=== PATIENT | female | born 1955 | race Caucasian/White ===

== ENCOUNTER 2017-06-25 11:11 | Emergency (ER) | payer MEDICAID ==
[2017-06-25 11:38] LABS: BILIRUBIN,URINE NEGATIVE (NEGATIVE)
[2017-06-25 11:45] LABS: UA w/ MICROSCOPIC CHARGE YES
[2017-06-25 11:54] LABS: UR CULTURE IF IND INDICATED
[2017-06-25] MEDS ORDERED: cefTRIAXone 1 GM VIAL IM STA (12:43)
--- NOTE | 2017-06-25 12:47 | ED Physician Documentation ---
PD HPI FEMALE - Stated complaint Stated Complaint: FEMALE - Chief complaint Chief Complaint: Abd Pain - History obtained from History obtained from: Patient, Family - History of Present Illness Timing - onset: How many days ago (3) Timing - duration: Days (3) Timing - details: Gradual onset, Still present Associated symptoms: Back pain, Dysuria, Urinary frequency Contributing factors: No: Similar symptoms before: Diagnosis (UTI) Recently seen: Not recently seen - Additional information Additional information: 62 y/o female began to have urinary symptoms and started drinking extra fluids. She developed severe flank pain last night and this is improved now after taking some ibuprofen this morning. Review of Systems Constitutional: reports: Fatigue. denies: Fever Eyes: denies: Decreased vision Ears: denies: Ear pain Nose: denies: Congestion Throat: denies: Sore throat Cardiac: denies: Chest pain / pressure, Palpitations Respiratory: denies: Dyspnea, Cough GI: reports: Abdominal Pain. denies: Nausea, Vomiting, Constipation, Diarrhea : reports: Dysuria, Frequency Musculoskeletal: reports: Back pain. denies: Neck pain PD PAST MEDICAL HISTORY - Past Medical History Past Medical History: No - Past Surgical History Past Surgical History: Yes - Present Medications Home Medications: Ambulatory Orders Medication Instructions Recorded Confirmed Ciprofloxacin HCl [Cipro] 500 mg PO BID #14 tablet 06/25/17 - Allergies Allergies/Adverse Reactions: Allergies Allergy/AdvReac Type Severity Reaction Status Date / Time cephalexin [From Keflex] Allergy Hives Verified 06/25/17 11:18 erythromycin base Allergy Unknown Verified 06/25/17 11:18 sulfamethoxazole Allergy Unknown Verified 06/25/17 11:18 [From Septra] trimethoprim [From Septra] Allergy Unknown Verified 06/25/17 11:18 - Social History Does the pt smoke?: Yes Smoking Status: Current every day smoker PD ED PE NORMAL - Vitals Vital signs reviewed: Yes (hypertensive ) - General General: Alert and oriented X 3, No acute distress, Well developed/nourished - HEENT HEENT: Atraumatic, PERRL - Neck Neck: Supple, no meningeal sign - Cardiac Cardiac: RRR, No murmur - Respiratory Respiratory: No respiratory distress, Clear bilaterally - Abdomen Abdomen: Soft, Non tender - Back Back: No CVA TTP, No spinal TTP - Derm Derm: Normal color, Warm and dry, No rash - Extremities Extremities: No deformity, No edema - Neuro Neuro: No motor deficit, No sensory deficit, Normal speech Eye Opening: Spontaneous Motor: Obeys Commands Verbal: Oriented GCS Score: 15 - Psych Psych: Normal mood, Normal affect Results - Vitals Vitals: Vital Signs - 24 hr 06/25/17 11:16 Temperature 36.4 C L Heart Rate 79 Respiratory 18 Rate Blood Pressure 152/87 H O2 Saturation 100 Oxygen O2 Source Room air - Labs Labs: Laboratory Tests 06/25/17 11:30 Urine Color YELLOW Urine Clarity CLEAR Urine pH 6.0 Ur Specific [place] 1.010 Urine Protein NEGATIVE Urine Glucose (UA) NEGATIVE Urine Ketones NEGATIVE Urine Occult Blood LARGE H Urine Nitrite NEGATIVE Urine Bilirubin NEGATIVE Urine Urobilinogen 0.2 (NORMAL) Ur Leukocyte Esterase MODERATE H Urine RBC 6-10 H Urine WBC 11-25 H Ur Squamous Epith Cells FEW Squamous Urine Bacteria Many H Urine Mucus Few Strands Ur Microscopic Review INDICATED Urine Culture Comments INDICATED PD MEDICAL DECISION MAKING - ED course Complexity details: reviewed results, re-evaluated patient, considered differential, d/w patient, d/w family ED course: 62-year-old female with several days of urinary symptoms developed flank pain last night has taken some ibuprofen and the flank pain is now resolved. She does have evidence of infection on evaluation of the urine and she is administered Rocephin IM and we will place her on some Cipro. She does have some issues with antibiotic reactions. Departure - Departure Disposition: 01 Home, Self Care Clinical Impression: Pyelonephritis Condition: Stable Instructions: ED Kidney Infec Female Follow-Up: [facility] [Provider Group] Prescriptions: Ciprofloxacin HCl [Cipro] 500 mg PO BID #14 tablet Forms: Activity restrictions
[2017-06-25] MEDS ORDERED: cefTRIAXone 1 GM VIAL ONE (12:53)
[2017-06-25] MEDS ORDERED: LIDOCAINE 1% 2 ML VIAL ONE (12:53)
[2017-06-25 13:01] VITALS: BP 142/82
== END 2017-06-25 13:01 | disposition home or self-care (01) ==
LOC: ED 11:11
DX: N12 Tubulo-interstitial nephritis, not specified as acute or chronic (principal); F17.200 Nicotine dependence, unspecified, uncomplicated
CPT/HCPCS: 81001; 81003; 87077; 87086; 96372; 99283; 99284

== ENCOUNTER 2017-11-04 13:28 | Emergency (ER) | payer MEDICAID ==
--- NOTE | 2017-11-04 14:16 | XRAY Preliminary Report ---
Exam: XR CHEST 2 VIEW X-RAY IMPRESSION: Findings suspicious for right upper lobe pneumonia. Correlate with clinical findings. Carisa rt-term radiographic follow-up is recommended in 3-4 weeks. [facility] SITE ID: [id number]
--- NOTE | 2017-11-04 14:17 | XRAY Report ---
EXAM: CHEST RADIOGRAPHY EXAM DATE: 11/04/2017 02:13 PM. CLINICAL HISTORY: Productive cough. COMPARISON: None. TECHNIQUE: 2 views. FINDINGS: Lungs/Pleura: Patchy peripheral airspace disease is seen in the right upper lobe, suspicious for pneu monia. The lungs are otherwise clear. No pneumothorax or pleural effusion. Mediastinum: Heart and mediastinal contours are unremarkable. Other: None. IMPRESSION: Findings suspicious for right upper lobe pneumonia. Correlate with clinical findings. Carisa rt-term radiographic follow-up is recommended in 3-4 weeks. [facility] Referring Provider Line: [phone] SITE ID: [id number]
--- NOTE | 2017-11-04 16:00 | ED Physician Documentation ---
PD HPI URI - Stated complaint Stated Complaint: ds - Chief complaint Chief Complaint: Resp - History obtained from History obtained from: Patient - History of Present Illness Timing - onset: How many weeks ago (1) Timing duration: Weeks (1) Timing details: Gradual onset, Still present Associated symptoms: Chills, Nasal congestion, Swollen nodes, Productive cough, Chest pain (with coughing). No: Fever, Hemoptysis, Dyspnea, NVD Contributing factors: No: Sick contact, Travel, Immunocompromised, COPD / asthma Similar symptoms before: Has not had sx before Recently seen: Not recently seen Review of Systems Constitutional: reports: Chills, Myalgias. denies: Fever Nose: reports: Rhinorrhea / runny nose, Congestion Throat: denies: Sore throat Cardiac: denies: Palpitations, Pedal edema, Calf pain Respiratory: reports: Dyspnea, Cough. denies: Wheezing GI: denies: Nausea, Vomiting, Diarrhea Neurologic: reports: Generalized weakness. denies: Focal weakness, Numbness PD PAST MEDICAL HISTORY - Past Medical History Cardiovascular: None Respiratory: None - Past Surgical History Past Surgical History: Yes - Present Medications Home Medications: Ambulatory Orders Medication Instructions Recorded Confirmed Albuterol Sulf [Ventolin Hfa 1 - 2 puffs INH Q4HR PRN #1 inhaler 11/04/17 Inhaler] Benzonatate [Tessalon] 100 mg PO TID PRN #25 capsule 11/04/17 Cetirizine [ZyrTEC] 11/04/17 Dexamethasone [Decadron] 4 mg PO DAILY #5 tablet 11/04/17 Doxycycline Monohydrate 100 mg PO BID #14 tablet 11/04/17 Tramadol HCl 50 mg PO Q6H PRN #20 tablet 11/04/17 - Allergies Allergies/Adverse Reactions: Allergies Allergy/AdvReac Type Severity Reaction Status Date / Time cephalexin [From Keflex] Allergy Hives Verified 11/04/17 13:54 erythromycin base Allergy Unknown Verified 11/04/17 13:54 sulfamethoxazole Allergy Unknown Verified 11/04/17 13:54 [From Septra] trimethoprim [From ] Allergy Unknown Verified 11/04/17 13:54 - Social History Does the pt smoke?: Yes Smoking Status: Current every day smoker PD ED PE NORMAL - Vitals Vital signs reviewed: Yes - General General: Alert and oriented X 3, Well developed/nourished - HEENT HEENT: Ears normal, Moist mucous membranes, Pharynx benign - Neck Neck: Supple, no meningeal sign, No adenopathy - Cardiac Cardiac: RRR, No murmur - Respiratory Respiratory: No respiratory distress. No: Clear bilaterally (some mild congestion sound perihilar with cough and deep breathing. ) - Abdomen Abdomen: Soft, Non tender - Back Back: No CVA TTP - Derm Derm: Normal color, Warm and dry, No rash - Extremities Extremities: No tenderness to palpate, No edema, No calf tenderness / cord Results - Vitals Vitals: Oxygen O2 Source Room air - Labs Labs: Laboratory Tests 11/04/17 13:58 Influenza A (Rapid) Negative Influenza B (Rapid) Negative Influenza Types A,B Ag - - Rads (name of study) chest Radiology: Prelim report reviewed, EMP read contemporaneously (small patch of infiltrate right upper lobe c/w pneumonia. ) PD MEDICAL DECISION MAKING - ED course Complexity details: reviewed results (small patch right upper lobe c/w early pneumonia. ), considered differential, d/w patient Departure - Departure Disposition: 01 Home, Self Care Clinical Impression: Pneumonia Qualifiers: Pneumonia type: due to unspecified organism Laterality: right Lung location: upper lobe of lung Qualified Code(s): J18.1 - Lobar pneumonia, unspecified organism Upper respiratory infection Qualifiers: URI type: unspecified URI Qualified Code(s): J06.9 - Acute upper respiratory infection, unspecified Condition: Stable Record reviewed to determine appropriate education?: Yes Instructions: ED Pneumonia Adult Prescriptions: Albuterol Sulf [Ventolin Hfa Inhaler] 1 - 2 puffs INH Q4HR PRN #1 inhaler PRN Reason: Shortness Of Air/Wheezing Benzonatate [Tessalon] 100 mg PO TID PRN #25 capsule PRN Reason: Cough Dexamethasone [Decadron] 4 mg PO DAILY #5 tablet Doxycycline Monohydrate 100 mg PO BID #14 tablet Tramadol HCl 50 mg PO Q6H PRN #20 tablet PRN Reason: Pain Comments: Drink lots of fluids. Use albuterol inhaler 2 puffs 4 times a day for the next 7-10 days and extra times as needed for cough and wheezing. Decadron steroid and anti-inflammatory daily for 5 days. Use Tessalon if needed for cough. This may be a viral infection but there is a small patch on your x-ray that suggests a mild pneumonia. This is more likely be bacterial so we will add doxycycline antibiotic twice daily for a week. Add Tylenol or tramadol if needed for pains. Recheck if not improving over the next several days to week. Discharge Date/Time: 11/04/17 16:28
[2017-11-04] MEDS ORDERED: DEXAMETHASONE 10 MG/ML VIAL PO STA (16:18)
[2017-11-04] MEDS ORDERED: BENZONATATE 100 MG CAPSULE PO STA (16:18)
[2017-11-04 16:30] VITALS: BP 136/79
[2017-11-04] MEDS ORDERED: CHERRY SYRUP 10 ML UDC PO ONE (16:32)
== END 2017-11-04 16:28 | disposition home or self-care (01) ==
LOC: ED 13:28
DX: J06.9 Acute upper respiratory infection, unspecified (principal); F17.200 Nicotine dependence, unspecified, uncomplicated
CPT/HCPCS: 71046; 87275; 87276; 99283; A9270

== ENCOUNTER 2017-11-13 10:06 | Emergency (ER) | payer MEDICAID ==
[2017-11-13] MEDS ORDERED: PSEUDOEPHEDRINE 30 MG TABLET PO STA (11:12)
[2017-11-13] MEDS ORDERED: OXYMETAZOLINE NASAL SPRAY NAS STA (11:12)
--- NOTE | 2017-11-13 11:18 | ED Physician Documentation ---
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 HEENT: None Psych: None Musculoskeletal: Osteoarthritis Derm: None - Past Surgical History Past Surgical History: Yes - Present Medications Home Medications: Ambulatory Orders Medication Instructions Recorded Confirmed Albuterol Sulf [Ventolin Hfa 1 - 2 puffs INH Q4HR PRN #1 inhaler 11/04/17 Inhaler] Benzonatate [Tessalon] 100 mg PO TID PRN #25 capsule 11/04/17 Cetirizine [ZyrTEC] 11/04/17 Nystatin 5 ml PO Q6H 7 Days #140 ml 11/13/17 Oxymetazoline HCl [Afrin] 2 spray NS BID PRN #1 bottle 11/13/17 Pseudoephedrine [Sudafed] 30 mg PO Q6H PRN #20 tablet 11/13/17 - Allergies Allergies/Adverse Reactions: Allergies Allergy/AdvReac Type Severity Reaction Status Date / Time cephalexin [From Keflex] Allergy Hives Verified 11/13/17 10:15 erythromycin base Allergy Unknown Verified 11/13/17 10:15 sulfamethoxazole Allergy Unknown Verified 11/13/17 10:15 [From Septra] trimethoprim [From Septra] Allergy Unknown Verified 11/13/17 10:15 - Social History Does the pt smoke?: Yes Smoking Status: Current every day smoker Does the pt drink ETOH?: No Does the pt have substance abuse?: No - Immunizations Immunizations are current?: Yes - POLST Patient has POLST: No PD ED PE NORMAL - Vitals Vital signs reviewed: Yes - HEENT HEENT: Moist mucous membranes, Other (R TM retracted and dull no erythema or purulence). No: Pharynx benign (some thrush) - Neck Neck: Supple, no meningeal sign - Cardiac Cardiac: RRR - Respiratory Respiratory: No respiratory distress, Clear bilaterally - Abdomen Abdomen: Soft, Non tender - Derm Derm: Normal color - Extremities Extremities: No edema Results - Vitals Vitals: Vital Signs - 24 hr 11/13/17 10:12 Temperature 36.7 C Heart Rate 74 Respiratory 15 Rate Blood Pressure 135/64 H O2 Saturation 98 Oxygen O2 Source Room air - Rads (name of study) CXR Radiology: See rad report (improving RUL pna) Departure - Departure Disposition: 01 Home, Self Care Clinical Impression: Thrush Eustachian tube dysfunction Qualifiers: Laterality: right Qualified Code(s): H69.81 - Other specified disorders of Eustachian tube, right ear Condition: Good Instructions: ED Otitis Media Serous Adult, Thrush Oral Prescriptions: Nystatin 5 ml PO Q6H 7 Days #140 ml Oxymetazoline HCl [Afrin] 2 spray NS BID PRN #1 bottle PRN Reason: nasal sinus ear congestion Pseudoephedrine [Sudafed] 30 mg PO Q6H PRN #20 tablet PRN Reason: congestion Comments: The pneumonia is improved on xray today so you do not need more antibiotics. But I did prescribe more cough medication The ear does not look infected but the tympanic membrane is very retraced which is painful I have prescribed afrin and sudafed to help open the eustchian tube to relieve the pressure on the tympanic membrane You have a yeast infection in your mouth called thrush - this is likely due to being on steroids and antibiotics. I have prescribed nystatin. Please follow up with your PMD for a recheck and if the thrush persists you need to have your immune system checked
--- NOTE | 2017-11-13 11:43 | XRAY Report ---
EXAM: CHEST RADIOGRAPHY EXAM DATE: 11/13/2017 11:26 AM. CLINICAL HISTORY: Prior pneumonia, not getting better. COMPARISON: Chest x-ray 11/04/2017. TECHNIQUE: 2 views. FINDINGS: Lungs/Pleura: Right upper lobe aeration has improved. Mild residual right lower lobe airspace disease . No pneumothorax or pleural effusion. Mediastinum: Heart and mediastinal contours are unremarkable. Other: None. IMPRESSION: Improving right upper lobe airspace disease compatible with pneumonia. [facility] Referring Provider Line: [phone] SITE ID: [id number]
[2017-11-13 12:06] VITALS: BP 118/70
== END 2017-11-13 12:10 | disposition home or self-care (01) ==
LOC: ED 10:06
DX: H69.81 Other specified disorders of Eustachian tube, right ear (principal); B37.0 Candidal stomatitis; M19.90 Unspecified osteoarthritis, unspecified site; F17.200 Nicotine dependence, unspecified, uncomplicated
CPT/HCPCS: 71046; 99283; A9270

== ENCOUNTER 2017-11-19 10:13 | Emergency (ER) | payer MEDICAID ==
[2017-11-19 10:21] VITALS: BP 141/85
--- NOTE | 2017-11-19 11:04 | ED Physician Documentation ---
PD HPI URI - Stated complaint Stated Complaint: COUGH/SINUS PX - Chief complaint Chief Complaint: Heent - History obtained from History obtained from: Patient - History of Present Illness Timing duration: Weeks (2) Timing details: Still present Similar symptoms before: Diagnosis (2 weeks ago was treated with doxycycline for right upper lobe pneumonia.) Recently seen: Emergency Dept - Additional information Additional information: The patient is a 62-year-old female who presents with congestion, headache, and right facial pain and pressure. She believes this is caused by sinus infection , which she has had in the past. She denies fever, sore throat, or shortness of breath. She has had cough, which has been improving since 2 weeks ago when she was diagnosed with right upper lobe pneumonia. She was treated with doxycycline at that time. She was also treated with steroid, and developed oral thrush, for which she was treated one week ago. She has a long-time history of cigarette smoking, and continues to smoke cigarettes. Review of Systems Constitutional: denies: Fever Eyes: denies: Irritation Ears: denies: Ear pain Nose: reports: Congestion, Sinus pressure / pain Throat: denies: Sore throat Cardiac: denies: Chest pain / pressure Respiratory: reports: Cough (improving). denies: Dyspnea GI: denies: Abdominal Pain, Nausea, Vomiting : denies: Dysuria Skin: denies: Rash Musculoskeletal: reports: Extremity swelling. denies: Neck pain, Extremity pain Neurologic: reports: Headache (right frontal). 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 HEENT: None Psych: None Musculoskeletal: Osteoarthritis Derm: None - Past Surgical History Past Surgical History: Yes - Present Medications Home Medications: Ambulatory Orders Medication Instructions Recorded Confirmed Albuterol Sulf [Ventolin Hfa 1 - 2 puffs INH Q4HR PRN #1 inhaler 11/04/17 Inhaler] Benzonatate [Tessalon] 100 mg PO TID PRN #25 capsule 11/04/17 Cetirizine [ZyrTEC] 11/04/17 Nystatin 5 ml PO Q6H 7 Days #140 ml 11/13/17 Oxymetazoline HCl [Afrin] 2 spray NS BID PRN #1 bottle 11/13/17 Pseudoephedrine [Sudafed] 30 mg PO Q6H PRN #20 tablet 11/13/17 Amox/Clav 875/125 [Augmentin] 1 each PO Q12H #20 tablet 11/19/17 Benzonatate [Tessalon Perle] 100 mg PO BID PRN #10 capsule 11/19/17 - Allergies Allergies/Adverse Reactions: Allergies Allergy/AdvReac Type Severity Reaction Status Date / Time cephalexin [From Keflex] Allergy Hives Verified 11/19/17 10:21 erythromycin base Allergy Unknown Verified 11/19/17 10:21 sulfamethoxazole Allergy Unknown Verified 11/19/17 10:21 [From Septra] trimethoprim [From Marra] Allergy Unknown Verified 11/19/17 10:21 - Social History Does the pt smoke?: Yes Smoking Status: Current every day smoker Does the pt drink ETOH?: No Does the pt have substance abuse?: No - Immunizations Immunizations are current?: Yes - POLST Patient has POLST: No PD ED PE NORMAL - Vitals Vital signs reviewed: Yes (Mild hypertension initially.) - General General: Alert and oriented X 3, Well developed/nourished - HEENT HEENT: Atraumatic, EOMI, Ears normal, Moist mucous membranes, Pharynx benign, Other (There is tenderness to percussion over the right maxillary sinus.) - Neck Neck: Supple, no meningeal sign, No adenopathy - Cardiac Cardiac: RRR, No murmur - Respiratory Respiratory: No respiratory distress, Clear bilaterally - Abdomen Abdomen: Soft, Non tender - Back Back: No CVA TTP - Derm Derm: No rash - Extremities Extremities: No edema, No calf tenderness / cord - Neuro Neuro: Alert and oriented X 3, No motor deficit, No sensory deficit Results - Vitals Vitals: Oxygen O2 Source Room air PD MEDICAL DECISION MAKING - ED course Complexity details: reviewed old records, considered differential, d/w patient ED course: The patient's presentation is most consistent with sinusitis. Her presentation does not suggest meningitis, peritonsillar abscess, or recurrent pneumonia. She is being discharged with a prescription for Augmentin and for Tessalon. I discussed with her the expected course of illness, antibiotic treatment and outpatient follow-up, as well as potentially worrisome signs or symptoms that should prompt reevaluation in the emergency department. Departure - Departure Disposition: 01 Home, Self Care Clinical Impression: Sinusitis Qualifiers: Sinusitis location: unspecified location Chronicity: acute Recurrence: recurrent Qualified Code(s): J01.91 - Acute recurrent sinusitis, unspecified Condition: Stable Instructions: ED Sinusitis Abx Tx Prescriptions: Amox/Clav 875/125 [Augmentin] 1 each PO Q12H #20 tablet Benzonatate [Tessalon Perle] 100 mg PO BID PRN #10 capsule PRN Reason: Cough Comments: Try to stop smoking cigarettes. Take Augmentin twice daily as prescribed. You should use probiotic or eat probiotic yogurt while on antibiotic therapy. He can use Tessalon as prescribed if needed for cough. Follow-up with primary physician within 2 weeks if possible. Call to schedule appointment. Return to the emergency department if you develop increasing difficulty breathing, or otherwise worsening symptoms. Discharge Date/Time: 11/19/17 11:13
== END 2017-11-19 11:13 | disposition home or self-care (01) ==
LOC: ED 10:13
DX: J01.91 Acute recurrent sinusitis, unspecified (principal); F17.200 Nicotine dependence, unspecified, uncomplicated
CPT/HCPCS: 99283

== ENCOUNTER 2018-01-17 09:38 | Outpatient (CLI) | payer MEDICAID, OTHER ==
[2018-01-17 13:35] LABS: BASOPHILS # (AUTO) 0.1 10^3/uL (0.0-0.1); BASOPHILS % (AUTO) 1.2 %; EOSINOPHILS # (AUTO) 0.2 10^3/uL (0.0-0.7); EOSINOPHILS % (AUTO) 2.4 %; HGB - HEMOGLOBIN 14.1 g/dL (12.0-16.0); LYMPHOCYTES # (AUTO) 2.3 10^3/uL (1.5-3.5); LYMPHOCYTES % (AUTO) 23.1 %; MEAN CORPUSCULAR HEMOGLOBIN 29.1 pg (27.0-31.0); MEAN CORPUSCULAR HGB CONC 33.1 g/dL (32.0-36.0); MEAN PLATELET VOLUME 8.5 fL (7.9-10.8); NEUTROPHILS # (AUTO) 6.4 10^3/uL (1.5-6.6); NEUTROPHILS % (AUTO) 63.3 %; PLT - PLATELET COUNT 347 10^3/uL (130-450); RED BLOOD COUNT 4.86 10^6/uL (4.20-5.40); RED CELL DISTRIBUTION WIDTH 14.4 % (12.0-15.0); WHITE BLOOD COUNT 10.1 x10^3/uL (4.8-10.8)
[2018-01-17 14:09] LABS: ALBUMIN 3.8 g/dL (3.2-5.5); ALBUMIN/GLOBULIN RATIO 1.2 (1.0-2.2); ALKALINE PHOSPHATASE 81 IU/L (42-121); ALT ALANINE AMINOTRANSFERASE 20 IU/L (10-60); AST ASPARTATE AMINOTRANSFERASE 20 IU/L (10-42); BILIRUBIN,TOTAL 0.3 mg/dL (0.2-1.0); BUN - BLOOD UREA NITROGEN 15 mg/dL (6-20); CARBON DIOXIDE - CO2 25 mmol/L (21-32); CHLORIDE 108 mmol/L (101-111); CHOL/HDL RATIO 4.8 (<4.4); CHOLESTEROL 226 mg/dL; CREATININE 0.7 mg/dL (0.4-1.0); GFR - MDRD 85 (>89); GLUCOSE 98 mg/dL (70-100); HDL CHOLESTEROL 47 mg/dL; LDL CHOLESTEROL,CALCULATED 146 mg/dL; LDL/HDL RATIO 3.1 (<4.4); SODIUM 139 mmol/L (135-145); VLDL CHOLESTEROL 33 mg/dL
== END 2018-01-17 09:39 | disposition home or self-care (01) ==
LOC: LAB.N 09:38
PROVIDERS: ATTEND Nurse Practitioner
DX: R03.0 Elevated blood-pressure reading, without diagnosis of hypertension (principal); R53.83 Other fatigue; F17.200 Nicotine dependence, unspecified, uncomplicated
CPT/HCPCS: 36415; 80053; 80061; 83721; 84443; 85025

== ENCOUNTER 2018-05-02 22:16 | Emergency (ER) | payer OTHER ==
[2018-05-02] MEDS ORDERED: IPRATROPIUM/ALBUTEROL 3 ML NEB INH STA ×2 (22:31→23:42)
--- NOTE | 2018-05-02 22:34 | ED Physician Documentation ---
PD HPI DYSPNEA - Stated complaint Stated Complaint: SOA - Chief complaint Chief Complaint: Resp - History obtained from History obtained from: Patient - History of Present Illness Timing - onset: How many days ago (3) Timing - onset during: Rest Timing - details: Gradual onset Worsened by: Coughing Associated symptoms: Cough. No: Fever Similar symptoms before: Work up / diagnostics Recently seen: Clinic - Additional information Additional information: Patient is a 63 year old female presenting to the emergency department for shortness of breath, cough and chest pain. patient states that she saw her doctor who diagnosed her with bronchitis but did not do an x-ray. patient states that she feels like someone is sitting on her chest. patient denies a history of asthma or copd but does report smoking a pack a day for most of her life. 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 : None HEENT: None Psych: None Musculoskeletal: Osteoarthritis Derm: None - Past Surgical History Past Surgical History: Yes - Present Medications Home Medications: Ambulatory Orders Medication Instructions Recorded Confirmed Albuterol Sulf [Ventolin Hfa 1 - 2 puffs INH Q4HR PRN #1 inhaler 11/04/17 Inhaler] Benzonatate [Tessalon] 100 mg PO TID PRN #25 capsule 11/04/17 Cetirizine [ZyrTEC] 11/04/17 Nystatin 5 ml PO Q6H 7 Days #140 ml 11/13/17 Oxymetazoline HCl [Afrin] 2 spray NS BID PRN #1 bottle 11/13/17 Pseudoephedrine [Sudafed] 30 mg PO Q6H PRN #20 tablet 11/13/17 Amox/Clav 875/125 [Augmentin] 1 each PO Q12H #20 tablet 11/19/17 Benzonatate [Tessalon Perle] 100 mg PO BID PRN #10 capsule 11/19/17 Albuterol Sulfate [Proventil Hfa 1 - 2 puffs INH Q4H PRN #1 inhaler 05/03/18 Inhaler] predniSONE [Prednisone] 40 mg PO DAILY 5 Days tablet 05/03/18 - Allergies Allergies/Adverse Reactions: Allergies Allergy/AdvReac Type Severity Reaction Status Date / Time cephalexin [From Keflex] Allergy Hives Verified 05/02/18 22:26 erythromycin base Allergy Unknown Verified 05/02/18 22:26 sulfamethoxazole Allergy Unknown Verified 05/02/18 22:26 [From Septra] trimethoprim [From Septra] Allergy Unknown Verified 05/02/18 22:26 - Social History Does the pt smoke?: Yes Smoking Status: Current every day smoker Does the pt drink ETOH?: No Does the pt have substance abuse?: No - Immunizations Immunizations are current?: Yes - POLST Patient has POLST: No PD ED PE NORMAL - Vitals Vital signs reviewed: Yes - General General: Alert and oriented X 3 - HEENT HEENT: Atraumatic - Cardiac Cardiac: RRR - Abdomen Abdomen: Soft - Derm Derm: Normal color, Warm and dry - Extremities Extremities: No deformity, No calf tenderness / cord - Neuro Neuro: Alert and oriented X 3, No motor deficit, Normal speech Eye Opening: Spontaneous - Psych Psych: Normal mood PD ED PE EXPANDED - Respiratory Respiratory: Wheezing (mild bilateral wheezes), Right upper lobe, Left upper lobe Results - Vitals Vitals: Vital Signs - 24 hr 05/02/18 22:24 Temperature 37.3 C Heart Rate 79 Respiratory 18 Rate Blood Pressure 152/70 H O2 Saturation 94 Oxygen O2 Source Room air - EKG (time done) 2243 Rate: Rate (enter#) (71) Rhythm: NSR [place]: Normal Intervals: Normal OR QRS: Normal Ischemia: Normal ST segments Compare to prior EKG: Unchanged from prior EKG - Rads (name of study) chest x-ray Radiology: Final report received (normal) PD MEDICAL DECISION MAKING - ED course Complexity details: reviewed old records, reviewed results, re-evaluated patient, considered differential, d/w patient ED course: Patient was seen and examined at bedside. labs were drawn and chest x-ray was ordered. Patient was started on a nebulizer treatment. chest x-ray showed no acute abnormalities. Patient responeded well to the original nebulizer treatment and was treated with a second nebulizer, was educated on a spacer and started on a short course of steroids. patient's symptoms were likely secondary to bronchitis with a component of emphysema. patietn was made guzman of the findings. patient required no further work up and was stable for discharge with outpatient follow up. - Sepsis Event Vital Signs: Vital Signs - 24 hr 05/02/18 22:24 Temperature 37.3 C Heart Rate 79 Respiratory 18 Rate Blood Pressure 152/70 H O2 Saturation 94 Oxygen O2 Source Room air Departure - Departure Disposition: 01 Home, Self Care Clinical Impression: Bronchitis Condition: Good Instructions: ED Bronchitis Asthmatic Follow-Up: primary,care provider [Other] - Within 1 week Prescriptions: Albuterol Sulfate [Proventil Hfa Inhaler] 1 - 2 puffs INH Q4H PRN #1 inhaler PRN Reason: Shortness Of Air/Wheezing predniSONE [Prednisone] 40 mg PO DAILY 5 Days tablet Comments: Your diagnostics today were within normal limits. there were no significant abnormalities. You should take the steroids for the next 4 days and use the inhaler as needed. You can continue with the cough medicine as prescribed by your physician. You may return to the emergency department at any time for new, worsening or uncontrollable symptoms. Discharge Date/Time: 05/03/18 00:12
[2018-05-02 22:56] LABS: BASOPHILS # (AUTO) 0.2 10^3/uL (0.0-0.1); BASOPHILS % (AUTO) 1.3 %; EOSINOPHILS # (AUTO) 0.3 10^3/uL (0.0-0.7); EOSINOPHILS % (AUTO) 2.6 %; HGB - HEMOGLOBIN 15.2 g/dL (12.0-16.0); LYMPHOCYTES # (AUTO) 3.1 10^3/uL (1.5-3.5); LYMPHOCYTES % (AUTO) 22.9 %; MEAN CORPUSCULAR HEMOGLOBIN 30.6 pg (27.0-31.0); MEAN PLATELET VOLUME 7.6 fL (7.9-10.8); MONOCYTES # (AUTO) 1.3 10^3/uL (0.0-1.0); MONOCYTES % (AUTO) 9.7 %; NEUTROPHILS # (AUTO) 8.5 10^3/uL (1.5-6.6); NEUTROPHILS % (AUTO) 63.5 %; PLT - PLATELET COUNT 330 10^3/uL (130-450); RED BLOOD COUNT 4.95 10^6/uL (4.20-5.40); RED CELL DISTRIBUTION WIDTH 14.3 % (12.0-15.0); WHITE BLOOD COUNT 13.4 x10^3/uL (4.8-10.8)
--- NOTE | 2018-05-02 23:04 | XRAY Report ---
Reason: chest pain, sob Procedure Date: 05/02/2018 Accession Number: [id number] / [id number] Procedure: XR - Chest 1 View X-Ray CPT Code: 36588 FULL RESULT: EXAM: CHEST RADIOGRAPHY EXAM DATE: 05/02/2018 10:56 PM. CLINICAL HISTORY: Chest pain, sob. COMPARISON: CHEST 2 VIEW 11/13/2017 11:20 AM. TECHNIQUE: 1 view. FINDINGS: Lungs/Pleura: No focal opacities evident. No pleural effusion. No pneumothorax. Mediastinum: Within exam limitations, the cardiomediastinal contour is normal. Other: None. IMPRESSION: Normal single view chest. RADIA
[2018-05-02 23:09] LABS: ALBUMIN 4.4 g/dL (3.2-5.5); ALBUMIN/GLOBULIN RATIO 1.4 (1.0-2.2); BILIRUBIN,TOTAL 0.8 mg/dL (0.2-1.0); CALCIUM 9.4 mg/dL (8.5-10.3); CREATININE 0.9 mg/dL (0.4-1.0); TOTAL PROTEIN 7.6 g/dL (6.7-8.2)
[2018-05-02] MEDS ORDERED: predniSONE 20 MG TABLET PO STA (23:42)
[2018-05-02 23:50] VITALS: BP 131/76
== END 2018-05-03 00:12 | disposition home or self-care (01) ==
LOC: ED 22:16
DX: J40 Bronchitis, not specified as acute or chronic (principal); F17.200 Nicotine dependence, unspecified, uncomplicated
CPT/HCPCS: 71045; 80053; 83690; 83880; 84484; 85025; 93005; 94640; 94664; 99283; J7512; 36415

== ENCOUNTER 2018-05-04 20:20 | Emergency (ER) | payer OTHER ==
[2018-05-04] MEDS ORDERED: guaiFENesin/CODEINE 5 ML UDC PO STA (20:55)
[2018-05-04] MEDS ORDERED: AMOX/CLAV 875 MG/125 MG TABLET PO STA (20:55)
[2018-05-04] MEDS ORDERED: ALBUTEROL NEB 2.5 MG/3 ML INH STA (20:55)
--- NOTE | 2018-05-04 20:58 | ED Physician Documentation ---
PD HPI CHEST PAIN - Stated complaint Stated Complaint: SOA/COUGHING - Chief complaint Chief Complaint: Resp - History obtained from History obtained from: Patient - History of Present Illness Timing - onset: Other (63-year-old woman who is a long-term her presents with several days worth of minimally productive cough and shortness of breath especially at night. She improved significantly the other night when she was seen here after 2 nebs but got worse again overnight last night despite being better yesterday. Her chest x-ray at the time was fine. 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 : None HEENT: None Psych: None Musculoskeletal: Osteoarthritis Derm: None - Past Surgical History Past Surgical History: Yes - Present Medications Home Medications: Ambulatory Orders Medication Instructions Recorded Confirmed Albuterol Sulf [Ventolin Hfa 1 - 2 puffs INH Q4HR PRN #1 inhaler 11/04/17 Inhaler] Benzonatate [Tessalon] 100 mg PO TID PRN #25 capsule 11/04/17 Cetirizine [ZyrTEC] 11/04/17 Nystatin 5 ml PO Q6H 7 Days #140 ml 11/13/17 Oxymetazoline HCl [Afrin] 2 spray NS BID PRN #1 bottle 11/13/17 Pseudoephedrine [Sudafed] 30 mg PO Q6H PRN #20 tablet 11/13/17 Amox/Clav 875/125 [Augmentin] 1 each PO Q12H #20 tablet 11/19/17 Benzonatate [Tessalon Perle] 100 mg PO BID PRN #10 capsule 11/19/17 Albuterol Sulfate [Proventil Hfa 1 - 2 puffs INH Q4H PRN #1 inhaler 05/03/18 Inhaler] predniSONE [Prednisone] 40 mg PO DAILY 5 Days tablet 05/03/18 Amox/Clav 875/125 [Augmentin 1 tab PO BID 10 Days #20 tablet 05/04/18 875/125] Hydrocodone Bit/Homatrop Me-Br 5 - 10 ml PO Q4HR PRN #120 ml 05/04/18 [Hydrocodone-Homatropine Syrup] - Allergies Allergies/Adverse Reactions: Allergies Allergy/AdvReac Type Severity Reaction Status Date / Time cephalexin [From Keflex] Allergy Hives Verified 05/02/18 22:26 erythromycin base Allergy Unknown Verified 05/02/18 22:26 sulfamethoxazole Allergy Unknown Verified 05/02/18 22:26 [From Septra] trimethoprim [From Septra] Allergy Unknown Verified 05/02/18 22:26 - Social History Does the pt smoke?: Yes Smoking Status: Current every day smoker Does the pt drink ETOH?: No Does the pt have substance abuse?: No - Immunizations Immunizations are current?: Yes - POLST Patient has POLST: No PD ED PE NORMAL - Vitals Vital signs reviewed: Yes - General General: Alert and oriented X 3, No acute distress - Neck Neck: Supple, no meningeal sign, No bony TTP - Cardiac Cardiac: RRR, No murmur - Respiratory Respiratory: No respiratory distress, Other (Moderate air motion, diminished throughout without focal findings) - Abdomen Abdomen: Non tender - Extremities Extremities: No edema, No calf tenderness / cord Results - Vitals Vitals: Vital Signs - 24 hr 05/04/18 20:25 Temperature 36.4 C L Heart Rate 81 Respiratory 16 Rate Blood Pressure 146/80 H O2 Saturation 96 Oxygen O2 Source Room air PD MEDICAL DECISION MAKING - ED course ED course: 63-year-old woman with respiratory infection, no improvement except for fleeting relief with beta agonists and steroids. She probably has underlying COPD and therefore antibiotics will be added. - Sepsis Event Vital Signs: Vital Signs - 24 hr 05/04/18 20:25 Temperature 36.4 C L Heart Rate 81 Respiratory 16 Rate Blood Pressure 146/80 H O2 Saturation 96 Oxygen O2 Source Room air Departure - Departure Disposition: 01 Home, Self Care Clinical Impression: Mild chronic obstructive pulmonary disease Condition: Stable Record reviewed to determine appropriate education?: Yes Instructions: ED COPD Flare, ED Smoking Cessation Prescriptions: Hydrocodone Bit/Homatrop Me-Br [Hydrocodone-Homatropine Syrup] 5 - 10 ml PO Q4HR PRN #120 ml PRN Reason: Cough Amox/Clav 875/125 [Augmentin 875/125] 1 tab PO BID 10 Days #20 tablet Comments: Your blood pressure was elevated today on check into the emergency department. This does not mean that you have hypertension, it is a common phenomenon to come to the emergency department and have elevated blood pressure. I recommend that you see your primary care physician within the week to have it rechecked when you are feeling better.
[2018-05-04 21:22] VITALS: BP 144/67
== END 2018-05-04 21:34 | disposition home or self-care (01) ==
LOC: ED 20:20
DX: J44.9 Chronic obstructive pulmonary disease, unspecified (principal); R03.0 Elevated blood-pressure reading, without diagnosis of hypertension; F17.200 Nicotine dependence, unspecified, uncomplicated
CPT/HCPCS: 94640; 99283; 99284; A9270

== ENCOUNTER 2018-08-26 08:00 | Outpatient (CLI) | payer OTHER ==
[2018-08-26 13:38] LABS: ALBUMIN 4.3 g/dL (3.2-5.5); ALBUMIN/GLOBULIN RATIO 1.3 (1.0-2.2); BILIRUBIN,TOTAL 0.5 mg/dL (0.2-1.0); CALCIUM 9.6 mg/dL (8.5-10.3); CREATININE 0.7 mg/dL (0.4-1.0); TOTAL PROTEIN 7.7 g/dL (6.7-8.2)
[2018-08-28 19:38] LABS: ANA SCREEN POSITIVE (NEGATIVE)
== END 2018-08-26 23:59 | disposition home or self-care (01) ==
LOC: LAB.N 08:00
PROVIDERS: ATTEND Nurse Practitioner
DX: R03.0 Elevated blood-pressure reading, without diagnosis of hypertension (principal); F17.200 Nicotine dependence, unspecified, uncomplicated; R21 Rash and other nonspecific skin eruption
CPT/HCPCS: 36415; 80053; 86038

== ENCOUNTER 2018-10-21 08:00 | Outpatient (CLI) | payer OTHER ==
[2018-10-21 15:55] LABS: ALBUMIN 4.5 g/dL (3.2-5.5); ALBUMIN/GLOBULIN RATIO 1.4 (1.0-2.2); BILIRUBIN,TOTAL 0.7 mg/dL (0.2-1.0); CALCIUM 9.5 mg/dL (8.5-10.3); CREATININE 0.9 mg/dL (0.4-1.0); TOTAL PROTEIN 7.7 g/dL (6.7-8.2)
== END 2018-10-21 23:59 | disposition home or self-care (01) ==
LOC: LAB.N 08:00
PROVIDERS: ATTEND Nurse Practitioner
DX: R03.0 Elevated blood-pressure reading, without diagnosis of hypertension (principal); F17.200 Nicotine dependence, unspecified, uncomplicated; R21 Rash and other nonspecific skin eruption
CPT/HCPCS: 36415; 80053; 86038

== ENCOUNTER 2019-12-10 08:00 | Outpatient (CLI) | payer MEDICARE, OTHER ==
[2019-12-10 13:25] LABS: BASOPHILS # (AUTO) 0.1 10^3/uL (0.0-0.1); BASOPHILS % (AUTO) 1.1 %; EOSINOPHILS # (AUTO) 0.2 10^3/uL (0.0-0.7); HGB - HEMOGLOBIN 15.4 g/dL (12.0-16.0); LYMPHOCYTES # (AUTO) 2.4 10^3/uL (1.5-3.5); LYMPHOCYTES % (AUTO) 23.4 %; MEAN CORPUSCULAR HEMOGLOBIN 29.3 pg (27.0-31.0); MEAN CORPUSCULAR VOLUME 91.6 fL (81.0-99.0); MEAN PLATELET VOLUME 10.6 fL (7.9-10.8); MONOCYTES # (AUTO) 0.9 10^3/uL (0.0-1.0); MONOCYTES % (AUTO) 8.8 %; NEUTROPHILS # (AUTO) 6.4 10^3/uL (1.5-6.6); NEUTROPHILS % (AUTO) 63.7 %; PLT - PLATELET COUNT 365 10^3/uL (130-450); RED BLOOD COUNT 5.26 10^6/uL (4.20-5.40); RED CELL DISTRIBUTION WIDTH 13.6 % (12.0-15.0); WHITE BLOOD COUNT 10.1 x10^3/uL (4.8-10.8)
[2019-12-10 13:49] LABS: ALBUMIN 4.5 g/dL (3.2-5.5); ALBUMIN/GLOBULIN RATIO 1.5 (1.0-2.2); ALKALINE PHOSPHATASE 88 IU/L (42-121); ALT ALANINE AMINOTRANSFERASE 23 IU/L (10-60); AST ASPARTATE AMINOTRANSFERASE 19 IU/L (10-42); BILIRUBIN,TOTAL 0.8 mg/dL (0.2-1.0); BUN - BLOOD UREA NITROGEN 20 mg/dL (6-20); CALCIUM 9.9 mg/dL (8.5-10.3); CARBON DIOXIDE - CO2 25 mmol/L (21-32); CHLORIDE 107 mmol/L (101-111); CHOL/HDL RATIO 4.5 (<4.4); CHOLESTEROL 272 mg/dL; CREATININE 0.9 mg/dL (0.4-1.0); GLUCOSE 108 mg/dL (70-100); HDL CHOLESTEROL 60 mg/dL; LDL CHOLESTEROL,CALCULATED 179 mg/dL; SODIUM 138 mmol/L (135-145); TOTAL PROTEIN 7.6 g/dL (6.7-8.2); VLDL CHOLESTEROL 33 mg/dL
[2019-12-10 13:55] LABS: HB2 TOTAL 15.3 g/dL; HEMOGLOBIN A1C 0.63 g/dL; HEMOGLOBIN A1C % 5.9 % (4.6-6.2)
== END 2019-12-10 23:59 | disposition home or self-care (01) ==
LOC: LAB.WCP 08:00
PROVIDERS: ATTEND Family Medicine
DX: E78.2 Mixed hyperlipidemia (principal); Z13.1 Encounter for screening for diabetes mellitus
CPT/HCPCS: 36415; 80053; 80061; 83036; 83721; 84443; 85025

== ENCOUNTER 2021-02-06 08:00 | Outpatient (CLI) | payer MEDICARE ==
[2021-02-06 17:50] LABS: BASOPHILS # (AUTO) 0.1 10^3/uL (0.0-0.1); BASOPHILS % (AUTO) 1.1 %; EOSINOPHILS # (AUTO) 0.2 10^3/uL (0.0-0.7); EOSINOPHILS % (AUTO) 2.3 %; HCT - HEMATOCRIT 48.5 % (37.0-47.0); LYMPHOCYTES # (AUTO) 2.1 10^3/uL (1.5-3.5); LYMPHOCYTES % (AUTO) 24.4 %; MEAN CORPUSCULAR HEMOGLOBIN 28.4 pg (27.0-31.0); MEAN CORPUSCULAR HGB CONC 30.9 g/dL (32.0-36.0); MEAN CORPUSCULAR VOLUME 91.9 fL (81.0-99.0); MEAN PLATELET VOLUME 10.2 fL (7.9-10.8); MONOCYTES # (AUTO) 0.8 10^3/uL (0.0-1.0); MONOCYTES % (AUTO) 9.1 %; NEUTROPHILS # (AUTO) 5.3 10^3/uL (1.5-6.6); NEUTROPHILS % (AUTO) 62.5 %; PLT - PLATELET COUNT 366 10^3/uL (130-450); RED BLOOD COUNT 5.28 10^6/uL (4.20-5.40); RED CELL DISTRIBUTION WIDTH 13.8 % (12.0-15.0); WHITE BLOOD COUNT 8.4 x10^3/uL (4.8-10.8)
[2021-02-06 18:18] LABS: ALBUMIN 4.7 g/dL (3.2-5.5); ALBUMIN/GLOBULIN RATIO 1.5 (1.0-2.2); ALKALINE PHOSPHATASE 90 IU/L (42-121); ALT ALANINE AMINOTRANSFERASE 21 IU/L (10-60); AST ASPARTATE AMINOTRANSFERASE 19 IU/L (10-42); BILIRUBIN,TOTAL 0.8 mg/dL (0.2-1.0); BUN - BLOOD UREA NITROGEN 14 mg/dL (6-20); CALCIUM 9.6 mg/dL (8.5-10.3); CARBON DIOXIDE - CO2 24 mmol/L (21-32); CHLORIDE 103 mmol/L (101-111); CHOL/HDL RATIO 4.5 (<4.4); CHOLESTEROL 256 mg/dL; CREATININE 0.8 mg/dL (0.4-1.0); GFR - MDRD 72 (>89); GLUCOSE 87 mg/dL (70-100); HDL CHOLESTEROL 57 mg/dL; LDL CHOLESTEROL,CALCULATED 164 mg/dL; LDL/HDL RATIO 2.9 (<4.4); POTASSIUM 4.5 mmol/L (3.5-5.0); SODIUM 136 mmol/L (135-145); TOTAL PROTEIN 7.9 g/dL (6.7-8.2); TRIGLYCERIDES 174 mg/dL; VLDL CHOLESTEROL 35 mg/dL
== END 2021-02-06 08:01 | disposition home or self-care (01) ==
LOC: LAB.WCP 08:00
PROVIDERS: ATTEND Nurse Practitioner
DX: J45.909 Unspecified asthma, uncomplicated (principal); Z13.220 Encounter for screening for lipoid disorders
CPT/HCPCS: 36415; 80053; 80061; 83721; 85025

== ENCOUNTER 2021-07-26 08:00 | Outpatient (CLI) | payer MEDICARE | END 2021-07-26 23:59 | LOC: LAB.N 08:00 | PROVIDERS: ATTEND Family Medicine | DX: U07.1 COVID-19 (principal) ==

== ENCOUNTER 2021-08-05 11:42 | Emergency (ER) | payer MEDICARE ==
--- NOTE | 2021-08-05 12:32 | ED Physician Documentation ---
PD HPI DYSPNEA - Stated complaint Stated Complaint: C+ - History obtained from History obtained from: Patient - History of Present Illness Timing - onset: How many days ago (10) Timing - onset during: Light activity Timing - duration: Days (10) Timing - details: Abrupt onset, Still present Inciting event(s): URI (tested positive for COVID Jul 21 and has had persistent cough and malaise, with worse cough and fevers the past 2 days.) Improved by: Inhaler/neb. No: Steroids (has not noted improvement with steroids , but is feeling shaky/tremors from it. States upset stomach, nausea with eating.) Associated symptoms: Fever, Cough, Wheezing. No: Chest pain / discomfort, Bilateral edema Similar symptoms before: Has not had sx before Recently seen: Clinic Review of Systems Constitutional: reports: Fever, Chills Nose: reports: Congestion. denies: Rhinorrhea / runny nose Throat: denies: Sore throat Cardiac: denies: Chest pain / pressure, Palpitations, Pedal edema Respiratory: reports: Dyspnea, Cough, Wheezing GI: reports: Abdominal Pain (epigastric pain with eating.), Nausea, Bloody / black stool (states dark loose stools the past 2 days.). 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 : None HEENT: None Psych: None Musculoskeletal: Osteoarthritis Derm: None - Past Surgical History Past Surgical History: Yes - Present Medications Home Medications: Ambulatory Orders Medication Instructions Recorded Confirmed Amoxicillin 500 mg PO TID 5 Days #15 cap 08/05/21 Benzonatate [Tessalon] 100 mg PO TID PRN #20 cap 08/05/21 Famotidine [Pepcid] 20 mg PO BID 10 Days #20 tablet 08/05/21 guaiFENesin/CODEINE [Robitussin AC] 5 ml PO Q6H PRN #120 ml 08/05/21 predniSONE [Deltasone] 40 mg PO DAILY 08/05/21 08/05/21 - Allergies Allergies/Adverse Reactions: Allergies Allergy/AdvReac Type Severity Reaction Status Date / Time cephalexin [From Keflex] Allergy Hives Verified 08/05/21 12:32 erythromycin base Allergy Unknown Verified 08/05/21 12:32 sulfamethoxazole Allergy Unknown Verified 08/05/21 12:32 [From ] trimethoprim [From ] Allergy Unknown Verified 08/05/21 12:32 - Social History Does the pt smoke?: Yes Smoking Status: Current every day smoker Does the pt drink ETOH?: No Does the pt have substance abuse?: No - Immunizations Immunizations are current?: Yes - POLST Patient has POLST: No PD ED PE NORMAL - Vitals Vital signs reviewed: Yes - General General: Alert and oriented X 3, No acute distress, Well developed/nourished - HEENT HEENT: Pharynx benign - Neck Neck: Supple, no meningeal sign, No adenopathy - Cardiac Cardiac: RRR, No murmur - Respiratory Respiratory: No: Clear bilaterally (some exp wheezing centrally. No coarse sounds. ) - Abdomen Abdomen: Soft, Non tender - Derm Derm: Normal color, Warm and dry - Extremities Extremities: Normal ROM s pain, No edema, No calf tenderness / cord - Neuro Neuro: Alert and oriented X 3, No motor deficit, Normal speech Results - Vitals Vitals: Vital Signs - 24 hr 08/05/21 08/05/21 12:29 14:21 Temperature 37.8 C 37.5 C Heart Rate 77 71 Respiratory 16 16 Rate Blood Pressure 116/78 126/68 O2 Saturation 95 96 Oxygen O2 Source Room air - Labs Labs: Laboratory Tests 08/05/21 08/05/21 13:31 13:31 WBC 7.6 RBC 5.44 H Hgb 15.6 Hct 48.0 H MCV 88.2 MCH 28.7 MCHC 32.5 RDW 14.0 Plt Count 191 MPV 11.2 H Neut # (Auto) 5.5 Lymph # (Auto) 1.2 L Weakley # (Auto) 0.7 Eos # (Auto) 0.0 Baso # (Auto) 0.0 Absolute Nucleated RBC 0.00 Nucleated RBC % 0.0 Sodium 136 Potassium 4.7 Chloride 99 L Carbon Dioxide 24 Anion Gap 13.0 BUN 23 H Creatinine 1.0 Estimated GFR (MDRD) 55 L Glucose 102 H Calcium 8.8 Total Bilirubin 0.9 AST 67 H ALT 40 Alkaline Phosphatase 89 Total Protein 7.2 Albumin 3.8 Globulin 3.4 Albumin/Globulin Ratio 1.1 Lipase 37 - Rads (name of study) chest xray Radiology: Prelim report reviewed (diffuse ground glass opacities. ), See rad report PD MEDICAL DECISION MAKING - ED course Complexity details: reviewed results, considered differential (has had COVID for 10 days and feeling increased cough and fever the past day. concern for secondary bronchitis/pneumonia. She states dark stool and has been on steroids, so could be gastritis. H/H is good, so can stop steroids and Rx [id number]. ), d/w patient Departure - Departure Disposition: 01 Home, Self Care Clinical Impression: Pneumonia due to COVID-19 virus, Cough Gastritis, acute Qualifiers: Gastritis type: unspecified gastritis Gastritis bleeding: presence of bleeding unspecified Qualified Code(s): K29.00 - Acute gastritis without bleeding Condition: Stable Record reviewed to determine appropriate education?: Yes Instructions: ED Gastritis Prescriptions: Amoxicillin 500 mg PO TID 5 Days #15 cap Famotidine [Pepcid] 20 mg PO BID 10 Days #20 tablet guaiFENesin/CODEINE [Robitussin AC] 5 ml PO Q6H PRN #120 ml PRN Reason: Cough Benzonatate [Tessalon] 100 mg PO TID PRN #20 cap PRN Reason: Cough Comments: Chest x-ray shows some mild diffuse changes consistent with Covid pneumonitis. There is no localized area of pneumonia to suggest a bacterial component. That said, there could be some bronchitis component, given the prolonged symptoms with now worse cough/fever. Amox three times daily for 5 days for this. We can try to help your cough with benzonatate (Tessalon) and cough medicine. Continue with the albuterol inhaler 2 puffs 4 times a day for the next several days or so. I would stop the prednisone since it sounds like it is upsetting your stomach and may be causing some mild bleeding (gastritis) and therefore causing the dark stools. It also does not sound like it is helping much. Presuming some irritation of the stomach (gastritis), I would suggest famotidine acid reducing medicine twice daily for the next week or so. You can also use antacid such as Maalox or Mylanta to help with your stomach. Recheck if not improving well over the next few days. Return if vomiting, increased diarrhea or dark stools, lightheadedness, worse breathing or other concerns. I transmitted your prescription to [facility] pharmacy in [place]. Discharge Date/Time: 08/05/21 14:32
[2021-08-05] MEDS ORDERED: BENZONATATE 100 MG CAPSULE PO STA (13:19)
[2021-08-05] MEDS ORDERED: guaiFENesin/CODEINE 5 ML UDC PO STA (13:20)
[2021-08-05] MEDS ORDERED: AMOXICILLIN 250 MG CAPSULE PO STA (13:20)
[2021-08-05 13:34] LABS: BASOPHILS % (AUTO) 0.1 %; HGB - HEMOGLOBIN 15.6 g/dL (12.0-16.0); LYMPHOCYTES # (AUTO) 1.2 10^3/uL (1.5-3.5); LYMPHOCYTES % (AUTO) 16.2 %; MEAN CORPUSCULAR HEMOGLOBIN 28.7 pg (27.0-31.0); MEAN CORPUSCULAR HGB CONC 32.5 g/dL (32.0-36.0); MEAN CORPUSCULAR VOLUME 88.2 fL (81.0-99.0); MEAN PLATELET VOLUME 11.2 fL (7.9-10.8); MONOCYTES # (AUTO) 0.7 10^3/uL (0.0-1.0); MONOCYTES % (AUTO) 9.8 %; NEUTROPHILS # (AUTO) 5.5 10^3/uL (1.5-6.6); NEUTROPHILS % (AUTO) 72.7 %; PLT - PLATELET COUNT 191 10^3/uL (130-450); RED BLOOD COUNT 5.44 10^6/uL (4.20-5.40); WHITE BLOOD COUNT 7.6 x10^3/uL (4.8-10.8)
[2021-08-05 13:51] LABS: ALBUMIN 3.8 g/dL (3.2-5.5); ALBUMIN/GLOBULIN RATIO 1.1 (1.0-2.2); BILIRUBIN,TOTAL 0.9 mg/dL (0.2-1.0); CALCIUM 8.8 mg/dL (8.5-10.3); TOTAL PROTEIN 7.2 g/dL (6.7-8.2)
[2021-08-05 13:52] LABS: POTASSIUM 4.7 mmol/L (3.5-5.0)
--- NOTE | 2021-08-05 14:20 | XRAY Report ---
PROCEDURE: Chest 1 View X-Ray INDICATIONS: chest pain TECHNIQUE: One view of the chest was acquired. COMPARISON: 05/02/2018 FINDINGS: Surgical changes and devices: None. Lungs and pleura: No pleural effusions or pneumothorax. There is diffuse groundglass opacities throu ghout the lungs with mild prominence of the interstitium. Mediastinum: Mediastinal contours appear normal. Heart size is normal. Bones and chest wall: No suspicious bony lesions. Overlying soft tissues appear unremarkable. IMPRESSION: Diffuse groundglass opacities and interstitial prominence concerning for atypical infection versus pu lmonary edema. This may be seen in the setting of Covid pneumonia. Recommend clinical correlation. Reviewed by: Saúl Langford DO on 08/05/2021 1:19 PM [email or web address] Approved by: Saúl Langford DO on 08/05/2021 1:19 PM [facility] Station ID: [id number]
[2021-08-05 14:21] VITALS: BP 126/68
== END 2021-08-05 14:32 | disposition home or self-care (01) ==
LOC: ED 11:42
DX: U07.1 COVID-19 (principal); J12.82 Pneumonia due to coronavirus disease 2019; K29.00 Acute gastritis without bleeding; F17.200 Nicotine dependence, unspecified, uncomplicated
CPT/HCPCS: 36415; 71045; 80053; 83690; 85025; 99284; A9270

== ENCOUNTER 2022-03-29 14:40 | Outpatient (CLI) | payer MEDICARE ==
--- NOTE | 2022-03-29 20:00 | XRAY Report ---
PROCEDURE: Thoracic Spine 3 View INDICATIONS: ACUTE THORACIC BACK PAIN TECHNIQUE: 2 views of the thoracic spine were acquired. COMPARISON: None. FINDINGS: Bones: No fractures or dislocations. Mild levoscoliosis centered at T10 level is seen. Mild degener ative endplate changes and loss of disc height throughout mid to lower thoracic spine is seen. No kemi picious bony lesions. 12 pairs of ribs are noted, and appear intact where visualized. Soft tissues: No paravertebral stripe thickening. IMPRESSION: Very mild levoscoliosis of thoracic spine centered at T10 level. Mild degenerative disc disease in mi d to lower thoracic spine. No acute compression fracture or significant listhesis. Reviewed by: Javier Marrero MD on 03/29/2022 7:59 PM PDT Approved by: Javier Marrero MD on 03/29/2022 7:59 PM PDT Station ID: [id number]
== END 2022-03-29 14:41 | disposition home or self-care (01) ==
LOC: DI 14:40
PROVIDERS: ATTEND Physician Assistant Medical
DX: M51.34 Other intervertebral disc degeneration, thoracic region (principal); M41.9 Scoliosis, unspecified

== ENCOUNTER 2023-09-14 19:45 | Emergency (ER) | payer MEDICARE ==
--- NOTE | 2023-09-14 20:10 | ED Physician Documentation ---
PD HPI MAJOR TRAUMA - Stated complaint Stated Complaint: FAAL/R SHOULDER INJ/LIP LAC - Chief complaint Chief Complaint: Trauma Hd/Nk - History obtained from History obtained from: Patient - Additional information Additional information: She mechanical trip and fall over a curb going face and right shoulder first. She has scrapes on her lip, the upper 1. There is no headache or loss of consciousness. The main thing that hurts is her right shoulder, she thinks she dislocated it. 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 : None HEENT: None Psych: None Musculoskeletal: Osteoarthritis Derm: None - Past Surgical History Past Surgical History: Yes - Present Medications Home Medications: Ambulatory Orders Medication Instructions Recorded Confirmed Amoxicillin 500 mg PO TID 5 Days #15 cap 08/05/21 Benzonatate [Tessalon] 100 mg PO TID PRN #20 cap 08/05/21 Famotidine [Pepcid] 20 mg PO BID 10 Days #20 tablet 08/05/21 guaiFENesin/CODEINE [Robitussin AC] 5 ml PO Q6H PRN #120 ml 08/05/21 predniSONE [Deltasone] 40 mg PO DAILY 08/05/21 08/05/21 Oxycodone HCl/Acetaminophen 1 - 2 each PO Q6H PRN #20 tablet 09/14/23 [Percocet 5-325 mg Tablet] - Allergies Allergies/Adverse Reactions: Allergies Allergy/AdvReac Type Severity Reaction Status Date / Time cephalexin [From Keflex] Allergy Hives Verified 09/14/23 19:58 erythromycin base Allergy Unknown Verified 09/14/23 19:58 sulfamethoxazole Allergy Unknown Verified 09/14/23 19:58 [From Septra] trimethoprim [From Marra] Allergy Unknown Verified 09/14/23 19:58 - Social History Does the pt smoke?: Yes Smoking Status: Current every day smoker Does the pt drink ETOH?: No Does the pt have substance abuse?: No - Immunizations Immunizations are current?: Yes - POLST Patient has POLST: No PD ED PE NORMAL - Vitals Vital signs reviewed: Yes - General General: Alert and oriented X 3, No acute distress - HEENT HEENT: PERRL, EOMI, Other (Kind of deep abrasions to the upper lip. Dentures in place.) - Extremities Extremities: Other (There is a deformity of the right shoulder consistent with dislocation, she is unable to range it at all. She does have sensation over the deltoid and in all areas of the hand with good radial pulse.) - Neuro Neuro: Alert and oriented X 3, Normal speech Eye Opening: Spontaneous Motor: Obeys Commands Verbal: Oriented GCS Score: 15 - Psych Psych: Normal mood, Normal affect Results - Vitals Vitals: Vital Signs - 24 hr 09/14/23 09/14/23 09/14/23 19:53 20:57 22:00 Temperature 36.4 C L Heart Rate 78 90 80 Respiratory 18 19 16 Rate Blood Pressure 138/77 H 132/75 H O2 Saturation 94 92 93 If not protocol : Oxygen Flow, liters/minute 09/14/23 09/14/23 09/14/23 22:29 22:35 22:40 Temperature Heart Rate 91 81 77 Respiratory 14 17 18 Rate Blood Pressure 132/75 H 163/97 H 165/107 H O2 Saturation 93 94 95 If not protocol 5 5 : Oxygen Flow, liters/minute 09/14/23 09/14/23 22:45 22:51 Temperature Heart Rate 76 76 Respiratory 13 15 Rate Blood Pressure 165/107 H 135/69 H O2 Saturation 99 97 If not protocol 5 5 : Oxygen Flow, liters/minute Oxygen O2 Source Nasal cannula - Rads (name of study) X-rays of right humerus and shoulder demonstrate a humeral head anterior dislocation with a elongated fracture Relevant Findings:: Final report received, EMP independent interpretation of test Procedures - Splint (location) - Minor RUE Splint applied by: Physician (myself) Type of splint: Fiberglass (coapt long arm) Other: Sling provided - Reduction Body part reduced: Right, Shoulder Fracture or dislocation: Fracture dislocation (Performed by Dr. Daly) Reduction aftercare: Xray confirms reduction - Procedural sedation Sedation prep: Informed consent, Time out completed, ASA 2 - mild disease Sedation Medications: propofol (60 mg them 40mg IVP- total 100mg IVP) Mallampati classification: II Patient status during sedation: Responds to tactile Sedation recovery: Recovered uneventfully Time in sedation (Minutes): 15 PD Medical Decision Making - ED course ED course: 68-year-old woman presents after ground-level fall with predominantly right shoulder injury and also a scrape on her lip that I do not think requires specific intervention other than cleaning and conservative care. X-ray of the shoulder and humerus demonstrate a significantly angulated and displaced shaft humerus fracture with dislocation of the glenohumeral joint. She does seem to be neurovascularly intact. Given the combination of findings I did discuss the case by phone with our on-call orthopedic surgeon, Dr. Trever Daly who says ideally will take her to the OR, but she is only been n.p.o. for 2 hours after dinner here so plans to trial in the ED reduction with sedation by me but we may have to pivot to another plan if it fails and given the combination of the humeral fracture and shoulder dislocation success is not guaranteed. The reduction actually went pretty well, I sedated her and assisted by Dr. Daly did the reduction and radiographs demonstrated a reduction. Subsequently she was placed in a coapt splint by me with a sling. Departure - Departure Disposition: 01 Home, Self Care Clinical Impression: Ground-level fall Abrasion of vermilion border of upper lip Qualifiers: Encounter type: initial encounter Qualified Code(s): S00.511A - Abrasion of lip, initial encounter Right humeral fracture Qualifiers: Encounter type: initial encounter Humerus Location: shaft Fracture type: closed Fracture morphology: spiral Fracture alignment: displaced Qualified Code(s): S42.341A - Displaced spiral fracture of shaft of humerus, right arm, initial encounter for closed fracture Dislocation of right shoulder joint Qualifiers: Encounter type: initial encounter Qualified Code(s): S43.004A - Unspecified dislocation of right shoulder joint, initial encounter Condition: Stable Record reviewed to determine appropriate education?: Yes Instructions: ED Dislocation Shoulder Redu, ED Fx Upper Ext Follow-Up: Orthopedic Care [Provider Group] - Within 1 week Prescriptions: Oxycodone HCl/Acetaminophen [Percocet 5-325 mg Tablet] 1 - 2 each PO Q6H PRN #20 tablet PRN Reason: pain Comments: I sent your prescription electronically to the [facility] in [place]. I am prescribing a short course of narcotic pain medication for you. These are potentially dangerous and addictive medications that should be used carefully. These medications may constipate you. Take an xisn-rli-bybaglt stool softener (docusate) twice daily with plenty of water while taking these medications. If you go 24 hours without a bowel movement, take khpw-kef-beuekbd miralax, per package instructions. Do not drink or drive while taking these medications. If you received narcotic or sedating medications while in the emergency department, do not drive for 24 hours. Store this medication in a safe, secure place and out of reach of children. It is a violation of federal law to give or sell this medication to another person or to use in a manner other than prescribed. The ED will not refill narcotic prescriptions, including prescriptions lost or stolen. To dispose of unwanted medications: 1. [facility] provides a drop box for medication in pill form only (no liquids) 8:00 am to 4:30 p.m. Saturday-Saturday in the lobby of the [facility], [address] [place] [address]. Empty pills into ziplock bag before disposal. Call [phone] for information. 2.[employer] is a free service available to all [facility] residents. Go to [email or web address] Note that many narcotic pain relievers also contain Tylenol/acetaminophen. Please ensure that your total dose of acetaminophen from all sources does not exceed 3 g (3000 mg) per day. Forms: PCP List
[2023-09-14] MEDS: HYDROmorphone 1 MG/ML CARPUJECT IVP STA ×2 (20:33→21:11)
[2023-09-14] MEDS: ACETAMINOPHEN 500 MG TABLET PO STA (20:36)
[2023-09-14] MEDS: TETANUS/DIPHTHERIA/PERTUSSIS 0.5 ML SYRINGE IM ONE (20:39)
--- NOTE | 2023-09-14 21:24 | XRAY Report ---
PROCEDURE: Shoulder 2+V RT INDICATIONS: shoulder inj TECHNIQUE: 3 views of the shoulder were acquired. COMPARISON: None. FINDINGS: Bones: There is a diagonal moderately displaced proximal humeral diaphyseal fracture associated with a anterior subcoracoid right shoulder joint dislocation.. No suspicious bony lesions. Visualized r ibs appear intact. Soft tissues: No suspicious soft tissue calcifications. The visualized lungs are within normal limi ts. IMPRESSION: Anterior humeral dislocation, associated with a diagonal displaced and angulated proximal humeral darrian physeal fracture.. Reviewed by: Nathan Oseguera MD on 09/14/2023 9:22 PM PST Approved by: Nathan Oseguera MD on 09/14/2023 9:22 PM [facility] Station ID: [id number]
--- NOTE | 2023-09-14 21:26 | XRAY Report ---
PROCEDURE: Humerus RT INDICATIONS: arm inj TECHNIQUE: 2 views of the humerus were acquired. COMPARISON: None. FINDINGS: Bones: There is a proximal humeral diaphyseal diagonal fracture which is angulated and less well vis ualized is an anterior subcoracoid dislocation of the humeral head. No suspicious bony lesions. Soft tissues: No suspicious soft tissue calcifications or masses. IMPRESSION: Humeral head anterior subcoracoid dislocation, diagonal elongated proximal humeral diaphyseal fractur e with proximal fracture tip approximating the skin surface. Reviewed by: Nathan Oseguera MD on 09/14/2023 9:24 PM PST Approved by: Nathan Oseguera MD on 09/14/2023 9:24 PM PST Station ID: [id number]
[2023-09-14] MEDS: NICOTINE 7 MG PATCH TOP STA (22:06)
[2023-09-14] MEDS: PROPOFOL 200 MG/20 ML VIAL IVP STA ×2 (22:33→23:09)
--- NOTE | 2023-09-14 22:58 | CONSULTATION NOTE ---
Referring Provider Name of Referring Provider:: Ryan Collins MD Consult Date: 09/14/23 History of Present Illness - History of Present Illness HPI Comment/Other: Sherice Dominique is a 68-year-old [id number]-hasa-[id number] female who apparently slipped while taking garbage out from her adventist on the evening of her emergency room visit. She was noted to have pain and swelling about her right shoulder and arm. She denied any loss of consciousness. No distal weakness or numbness noted. X-rays were taken of her humerus and shoulder showed an anterior inferior dislocation of her shoulder along with a long spiral or oblique fracture of her humeral shaft. We were asked to see the patient to assist in her management. She has had fractures to her right arm in the past. No prior shoulder dislocations. 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 : reports: None HEENT: reports: None Psych: reports: None Musculoskeletal: reports: Osteoarthritis Derm: reports: None MRSA Hx?: No - POLST Patient has POLST: No Meds/Allgy - Home Medications Home Medications: Ambulatory Orders Medication Instructions Recorded Confirmed Amoxicillin 500 mg PO TID 5 Days #15 cap 08/05/21 Benzonatate [Tessalon] 100 mg PO TID PRN #20 cap 08/05/21 Famotidine [Pepcid] 20 mg PO BID 10 Days #20 tablet 08/05/21 guaiFENesin/CODEINE [Robitussin AC] 5 ml PO Q6H PRN #120 ml 08/05/21 predniSONE [Deltasone] 40 mg PO DAILY 08/05/21 08/05/21 - Allergies Allergies/Adverse Reactions: Allergies Allergy/AdvReac Type Severity Reaction Status Date / Time cephalexin [From Keflex] Allergy Hives Verified 09/14/23 19:58 erythromycin base Allergy Unknown Verified 09/14/23 19:58 sulfamethoxazole Allergy Unknown Verified 09/14/23 19:58 [From Septra] trimethoprim [From ] Allergy Unknown Verified 09/14/23 19:58 Exam - Vital Signs Vital Signs: Vital Signs x48h Temp Pulse Resp BP Pulse Ox O2 Flow Rate 09/14/23 22:51 76 15 135/69 H 97 5 09/14/23 22:45 76 13 165/107 H 99 5 09/14/23 22:40 77 18 165/107 H 95 5 09/14/23 22:35 81 17 163/97 H 94 5 09/14/23 22:29 91 14 132/75 H 93 09/14/23 22:00 80 16 132/75 H 93 09/14/23 20:57 90 19 92 09/14/23 19:53 36.4 C L 78 18 138/77 H 94 - Physical Exam Comments/Other: Examination: Patient has 1+ swelling around her shoulder and upper arm. No bruising or ecchymoses visible now. On palpation there appears to be a divot where the humeral head should be on the lateral lateral aspect of her shoulder. Neurovascularly she is intact distally. Sensation is intact throughout. She has good strong thumb extension. X-rays: X-rays taken initially shows a long oblique or spiral fracture of the humeral shaft. Films of the shoulder joint shows evidence of a anterior inferior dislocation of the humeral head. Conclusion and Plan - Diagnosis Diagnosis: 1. Closed right dominant anterior inferior shoulder dislocation. 2. Right dominant spiral fracture/oblique fracture of the humeral shaft - Plan Plan: Plan: With conscious sedation we were able to apply longitudinal traction inferiorly and anteriorly to her arm. Then we applied pressure from the anterior inferior aspect of her joint repositioning her humeral head. After several attempts while under conscious sedation it is felt as if the humeral head had relocated into the glenohumeral joint. X-rays: (After our reduction maneuver) showed the humeral head now to be back in the glenoid cavity in both AP and Y lateral projections. Humeral shaft also is in good alignment. Coaptation splints were applied to the arm to protect and help align the humeral shaft fracture with gravity traction. Arm placed in a shoulder immobilizer. Pain medications given. She will follow-up with orthopedic clinic in about a week's time for debbie-ray to check on the reduction of the shoulder joint and if the swelling is diminished enough we will have her fitted for a Mcnamara dia l fracture brace.
[2023-09-14] MEDS: oxyCODONE/ACET 5/325 Prepack 4 PO STA (23:11)
[2023-09-14 23:39] VITALS: BP 142/69; O2SAT 98
--- NOTE | 2023-09-14 23:44 | XRAY Report ---
PROCEDURE: Shoulder 2+V RT INDICATIONS: post-reduction TECHNIQUE: 3 views of the shoulder were acquired. COMPARISON: Shoulder and humerus plain films earlier same day reviewed.. FINDINGS: Bones: There has been a successful reduction of the anterior subcoracoid humeral head dislocation, a nd also reduction in the degree of malalignment at the proximal humeral diaphyseal fracture which is no longer directed towards the cutaneous surface.. No suspicious bony lesions. Visualized ribs appe ar intact. Soft tissues: No suspicious soft tissue calcifications. The visualized lungs are within normal limi ts. IMPRESSION: Successful shoulder joint dislocation reduction, reduction in malalignment of fracture plane involvin g the proximal right humerus. Reviewed by: Nathan Oseguera MD on 09/14/2023 11:42 PM PST Approved by: Nathan Oseguera MD on 09/14/2023 11:42 PM PST Station ID: [id number]
== END 2023-09-14 23:36 | disposition home or self-care (01) ==
LOC: ED 19:45
DX: S00.511A Abrasion of lip, initial encounter (principal); S42.341A Displaced spiral fracture of shaft of humerus, right arm, initial encounter for closed fracture; S43.004A Unspecified dislocation of right shoulder joint, initial encounter; W18.39XA Other fall on same level, initial encounter; Z23 Encounter for immunization
CPT/HCPCS: 23650; 29105; 73030; 73060; 90471; 90715; 96374; 96376; 99152; 99284; 99285; A9270; J1170

== ENCOUNTER 2023-09-19 08:00 | Outpatient (CLI) | payer MEDICARE ==
--- NOTE | 2023-09-19 15:22 | XRAY Report ---
PROCEDURE: Shoulder 3 View RT INDICATIONS: RIGHT SHOULDER DISLOCATION TECHNIQUE: 4 views of the shoulder were acquired. COMPARISON: Shoulder radiographs 09/14/2023. FINDINGS: Bones: Redemonstration of comminuted and moderately displaced fracture of the proximal humeral shaft . Query increased inferior displacement of the humeral head since 09/14/2023. Acromioclavicular interv al is intact. Soft tissues: No suspicious soft tissue calcifications. The visualized lungs are within normal limi ts. IMPRESSION: Comminuted moderately displaced proximal humeral diaphyseal fracture with possible increased inferior displacement of proximal humeral head. Fractured and 5. Reviewed by: Janelle Palomino MD on 09/19/2023 3:20 PM PST Approved by: Janelle Palomino MD on 09/19/2023 3:20 PM PST Station ID: [id number]
--- NOTE | 2023-09-19 15:26 | XRAY Report ---
PROCEDURE: Humerus RT INDICATIONS: RIGHT HUMERUS FX TECHNIQUE: 2 views of the humerus were acquired. COMPARISON: Humerus radiographs 09/14/2023. FINDINGS: Bones: Comminuted proximal humeral shaft spiral fracture with at least one shaft width lateral displa cement of large fracture fragment since 09/14/2023. Soft tissues: No suspicious soft tissue calcifications or masses. IMPRESSION: Stable increased lateral displacement of proximal humeral shaft fracture fragment versus positional a rtifact. No new fracture identified. Reviewed by: Janelle Palomino MD on 09/19/2023 3:25 PM PST Approved by: Janelle Palomino MD on 09/19/2023 3:25 PM PST Station ID: [id number]
== END 2023-09-19 23:59 | disposition home or self-care (01) ==
LOC: DI.WOS 08:00
PROVIDERS: ATTEND Orthopaedic Surgery
DX: S42.301A Unspecified fracture of shaft of humerus, right arm, initial encounter for closed fracture (principal)

== ENCOUNTER 2023-09-26 08:00 | Outpatient (CLI) | payer MEDICARE ==
--- NOTE | 2023-09-26 20:39 | XRAY Report ---
PROCEDURE: Humerus RT INDICATIONS: RIGHT HUMERUS FRACTURE TECHNIQUE: 3 views of the humerus were acquired. COMPARISON: 09/19/2023 FINDINGS: Bones: Again noted is comminuted and displaced oblique fracture involving proximal humeral shaft. Ov erall alignment of right humerus is unchanged from prior study. No new fracture or dislocation. Soft tissues: No suspicious soft tissue calcifications or masses. IMPRESSION: Stable appearance of comminuted and displaced proximal humeral shaft fracture. No new fracture or dis location. Reviewed by: Javier Marrero MD on 09/26/2023 8:37 PM PST Approved by: Javier Marrero MD on 09/26/2023 8:37 PM PST Station ID: [id number]
== END 2023-09-26 23:59 | disposition home or self-care (01) ==
LOC: DI.WOS 08:00
PROVIDERS: ATTEND Orthopaedic Surgery
DX: S42.301A Unspecified fracture of shaft of humerus, right arm, initial encounter for closed fracture (principal)

== ENCOUNTER 2023-10-10 08:00 | Outpatient (CLI) | payer MEDICARE ==
--- NOTE | 2023-10-10 14:39 | XRAY Report ---
PROCEDURE: Humerus RT INDICATIONS: RIGHT HUMERUS FRACTURE TECHNIQUE: 2 views of the humerus were acquired. COMPARISON: 2 views of the right humerus dated 09/26/2023, 09/19/2023. FINDINGS: Bones: Displaced, comminuted humeral fracture is redemonstrated. Fracture fragments appear slightly more approximated than on the prior study dated 09/26/2023; however there is still a moderate amount o f distraction. Soft tissues: No suspicious soft tissue calcifications or masses. IMPRESSION: Distracted, comminuted right humeral fracture. No callus yet visualized. Reviewed by: Viviana Irene MD on 10/10/2023 2:38 PM PDT Approved by: Viviana Irene MD on 10/10/2023 2:38 PM PDT Station ID: [id number]
== END 2023-10-10 23:59 | disposition home or self-care (01) ==
LOC: DI.WOS 08:00
PROVIDERS: ATTEND Orthopaedic Surgery
DX: S42.351D Displaced comminuted fracture of shaft of humerus, right arm, subsequent encounter for fracture with routine healing (principal)

== ENCOUNTER 2023-10-17 08:00 | Outpatient (CLI) | payer MEDICARE ==
--- NOTE | 2023-10-17 18:08 | XRAY Report ---
PROCEDURE: Humerus RT INDICATIONS: RIGHT HUMERUS FRACTURE TECHNIQUE: 2 views of the humerus were acquired. COMPARISON: 2 views of the humerus dated 10/10/2023, 09/26/2023, 09/19/2023 FINDINGS: Bones: Displaced humeral fracture is redemonstrated. Early bridging callus is now visualized. Fractu re fragments are in unchanged anatomic alignment. Soft tissues: No suspicious soft tissue calcifications or masses. IMPRESSION: Early interval healing of a displaced comminuted right proximal humeral fracture. Reviewed by: Viviana Irene MD on 10/17/2023 6:07 PM PDT Approved by: Viviana Irene MD on 10/17/2023 6:07 PM PDT Station ID: [id number]
== END 2023-10-17 23:59 | disposition home or self-care (01) ==
LOC: DI.WOS 08:00
PROVIDERS: ATTEND Orthopaedic Surgery
DX: S42.291D Other displaced fracture of upper end of right humerus, subsequent encounter for fracture with routine healing (principal)

== ENCOUNTER 2024-01-27 08:00 | Outpatient (CLI) | payer MEDICARE | END 2024-01-27 23:59 | disposition home or self-care (01) | LOC: LAB 08:00 | PROVIDERS: ATTEND Physician Assistant Medical | DX: T81.89XA Other complications of procedures, not elsewhere classified, initial encounter (principal); S42.351S Displaced comminuted fracture of shaft of humerus, right arm, sequela | CPT/HCPCS: 87070; 87077; 87181; 87205 ==

== ENCOUNTER 2024-02-12 10:50 | Outpatient (CLI) | payer MEDICARE ==
[2024-02-12 11:20] LABS: CREATININE 0.8 mg/dL (0.6-1.3); GFR - MDRD 71 (>89)
[2024-02-12 11:38] LABS: VANCOMYCIN,TROUGH 10.3 ug/mL
== END 2024-02-12 10:51 | disposition home or self-care (01) ==
LOC: LAB.R 10:50
PROVIDERS: ATTEND Internal Medicine Infectious Disease
DX: M86.2 Subacute osteomyelitis (principal); S42.201K Unspecified fracture of upper end of right humerus, subsequent encounter for fracture with nonunion
CPT/HCPCS: 80202; 82565

== ENCOUNTER 2024-03-09 17:12 | Outpatient (CLI) | payer MEDICARE, MEDICAID | END 2024-03-09 17:13 | disposition short-term general hospital (02) | LOC: EMS 17:12 | DX: M25.552 Pain in left hip (principal); W01.0XXA Fall on same level from slipping, tripping and stumbling without subsequent striking against object, initial encounter; Y92.009 Unspecified place in unspecified non-institutional (private) residence as the place of occurrence of the external cause | CPT/HCPCS: A0425; A0427 ==

== ENCOUNTER 2024-03-09 17:43 | Inpatient (IN) | payer MEDICARE, MEDICAID ==
--- NOTE | 2024-03-09 18:35 | ED Physician Documentation ---
History of Present Illness - Stated complaint Stated Complaint: GLF/HIP PX - Chief complaint Chief Complaint: Trauma Ext - History obtained from History obtained from: Patient, EMS - History of Present Illness Timing: Today Pain level max: 10 Pain level now: 10 - Additonal information Additional information: Patient is a 69-year-old female who presents to the emergency department after ground-level fall. She states she landed on the left hip causing left hip pain. She is currently undergoing IV antibiotics through her PICC line for an infection in her right humerus. She is followed at [facility] in [place] for this. Not on blood thinners. No head, neck, back pain. She is currently receiving Rocephin and vancomycin for the infection of the right humerus. Review of Systems Constitutional: denies: Fever, Chills Cardiac: denies: Chest pain / pressure Respiratory: denies: Dyspnea, Cough GI: denies: Abdominal Pain, Nausea, Vomiting, Constipation, Diarrhea : denies: Dysuria Skin: reports: Reviewed and negative. 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 : None HEENT: None Psych: None Musculoskeletal: Osteoarthritis Derm: None - Past Surgical History Past Surgical History: Yes - Present Medications Home Medications: Ambulatory Orders Medication Instructions Recorded Confirmed Doxycycline [Vibramycin] 100 mg PO BID 03/09/24 03/09/24 Escitalopram [Lexapro] 10 mg PO DAILY 03/09/24 03/09/24 Vancomycin/Water For Inj (Peg) 1,100 mg IV 03/09/24 [Vancomycin 1 Gram/200 ml Bag] cefTRIAXone [Rocephin 2 gram] 2 gm IV Q24H 03/09/24 03/09/24 - Allergies Allergies/Adverse Reactions: Allergies Allergy/AdvReac Type Severity Reaction Status Date / Time cephalexin [From Keflex] Allergy Hives Verified 03/09/24 17:57 erythromycin base Allergy Unknown Verified 03/09/24 17:57 sulfamethoxazole Allergy Unknown Verified 03/09/24 17:57 [From Marra] trimethoprim [From Marra] Allergy Unknown Verified 03/09/24 17:57 - Social History Does the pt smoke?: Yes Smoking Status: Current every day smoker Does the pt drink ETOH?: No Does the pt have substance abuse?: No - Immunizations Immunizations are current?: Yes - POLST Patient has POLST: No PD ED PE NORMAL - Vitals Vital signs reviewed: Yes - General General: Alert and oriented X 3, No acute distress - HEENT HEENT: Atraumatic, PERRL, Moist mucous membranes - Neck Neck: Supple, no meningeal sign, No bony TTP, Other (No step-off or deformity. No tenderness to palpation.) - Cardiac Cardiac: RRR, Strong equal pulses - Respiratory Respiratory: No respiratory distress, Clear bilaterally - Abdomen Abdomen: Soft, Non tender, Non distended - Derm Derm: Warm and dry - Extremities Extremities: Other (Left lower extremity is shortened and externally rotated. Unable to move the leg without severe pain. Neurovascularly intact.) - Neuro Neuro: Alert and oriented X 3, pull over 2-12 intact, No motor deficit, No sensory deficit, Normal speech Eye Opening: Spontaneous Motor: Obeys Commands Verbal: Oriented GCS Score: 15 - Psych Psych: Normal mood, Normal affect Results - Vitals Vitals: Vital Signs - 24 hr 03/09/24 03/09/24 03/09/24 17:49 17:50 18:05 Temperature Heart Rate 70 Respiratory 18 Rate Blood Pressure 139/71 H O2 Saturation 88 L 92 If not protocol 1 : Oxygen Flow, liters/minute 03/09/24 03/09/24 18:11 19:26 Temperature 36.7 C Heart Rate 68 79 Respiratory 22 17 Rate Blood Pressure 139/69 H 142/77 H O2 Saturation 91 L 94 If not protocol 1 2 : Oxygen Flow, liters/minute Oxygen O2 Source Nasal cannula - Labs Labs: Laboratory Tests 03/09/24 03/09/24 20:11 20:11 WBC 13.6 H RBC 4.48 Hgb 12.8 Hct 40.0 MCV 89.3 MCH 28.6 MCHC 32.0 RDW 13.8 Plt Count 297 MPV 9.3 Neut # (Auto) 10.9 H Lymph # (Auto) 1.1 L [place] # (Auto) 1.2 H Eos # (Auto) 0.1 Baso # (Auto) 0.1 Absolute Nucleated RBC 0.00 Nucleated RBC % 0.0 Sodium 136 Potassium 4.2 Chloride 106 Carbon Dioxide 22 Anion Gap 8.0 BUN 17 Creatinine 0.7 Estimated GFR (MDRD) 83 L Glucose 141 H Calcium 9.4 Total Bilirubin 0.4 AST 18 ALT 20 Alkaline Phosphatase 115 Total Protein 6.7 Albumin 4.1 Globulin 2.6 Albumin/Globulin Ratio 1.6 Lipase 16 - Rads (name of study) Left hip x-ray Relevant Findings:: Final report received, See rad report (Impacted left femoral neck fracture) PD Medical Decision Making - ED course Complexity details: reviewed results, re-evaluated patient, considered differential, d/w patient, d/w family, d/w senior analytic consultant ED course: 69-year-old female with an impacted left femoral neck fracture. Given several doses of IV Dilaudid for pain. Discussed the case with Dr. Daly, orthopedics on- call, request that the hospitalist admit the patient and he will plan on taking her to the OR tomorrow. Discussed the case with the nighttime hospitalist who accepts. The nighttime hospitalist does request that I order an EKG, chest x- ray and COVID test. These were ordered and will be followed up by the hospitalist. Patient will be admitted for further care. This document was made in part using voice recognition software. While efforts are made to proofread this document, sound alike and grammatical errors may occur. Departure - Departure Disposition: 66 [facility] DC/Xfer Clinical Impression: Hip fracture, left Qualifiers: Encounter type: initial encounter Fracture type: closed Qualified Code(s): S72.002A - Fracture of unspecified part of neck of left femur, initial encounter for closed fracture Condition: Stable Forms: PCP List
[2024-03-09] MEDS: HYDROmorphone 1 MG/ML CARPUJECT IVP STA ×2 (18:41→20:20)
--- NOTE | 2024-03-09 19:50 | XRAY Report ---
PROCEDURE: Hip w/Pelvis 2-3V LT INDICATIONS: fall, pain TECHNIQUE: 2 views of the hip were acquired. COMPARISON: None. FINDINGS: Bones: Impacted and displaced left femoral neck fracture.. No suspicious bony lesions. Soft tissues: No suspicious soft tissue calcifications or masses. IMPRESSION: Impacted and displaced left femoral neck fracture. Reviewed by: Byron Ojeda MD on 03/09/2024 7:49 PM PDT Approved by: Byron Ojeda MD on 03/09/2024 7:49 PM PDT Station ID: [id number]
[2024-03-09 20:20] LABS: BASOPHILS # (AUTO) 0.1 10^3/uL (0.0-0.1); BASOPHILS % (AUTO) 0.9 %; EOSINOPHILS # (AUTO) 0.1 10^3/uL (0.0-0.7); EOSINOPHILS % (AUTO) 0.6 %; HGB - HEMOGLOBIN 12.8 g/dL (12.0-16.0); LYMPHOCYTES # (AUTO) 1.1 10^3/uL (1.5-3.5); LYMPHOCYTES % (AUTO) 7.9 %; MEAN CORPUSCULAR HEMOGLOBIN 28.6 pg (27.0-31.0); MEAN CORPUSCULAR VOLUME 89.3 fL (81.0-99.0); MEAN PLATELET VOLUME 9.3 fL (7.9-10.8); MONOCYTES # (AUTO) 1.2 10^3/uL (0.0-1.0); MONOCYTES % (AUTO) 9.1 %; NEUTROPHILS # (AUTO) 10.9 10^3/uL (1.5-6.6); NEUTROPHILS % (AUTO) 80.5 %; PLT - PLATELET COUNT 297 10^3/uL (130-450); RED BLOOD COUNT 4.48 10^6/uL (4.20-5.40); RED CELL DISTRIBUTION WIDTH 13.8 % (12.0-15.0); WHITE BLOOD COUNT 13.6 x10^3/uL (4.8-10.8)
[2024-03-09] MEDS: SODIUM CHLORIDE 0.9% 1,000 ML IV STA (20:20)
[2024-03-09 20:35] LABS: ALBUMIN 4.1 g/dL (3.2-5.5); ALBUMIN/GLOBULIN RATIO 1.6 (1.0-2.2); BILIRUBIN,TOTAL 0.4 mg/dL (0.2-1.0); CALCIUM 9.4 mg/dL (8.5-10.3); CREATININE 0.7 mg/dL (0.6-1.3); POTASSIUM 4.2 mmol/L (3.5-4.5); TOTAL PROTEIN 6.7 g/dL (6.4-8.9)
[2024-03-09] MEDS ORDERED: ONDANSETRON 4 MG/2 ML VIAL IVP PRN (20:44)
[2024-03-09] MEDS ORDERED: HYDROcod/ACETAM 5/325 MG TABLET PO PRN (20:44)
[2024-03-09] MEDS ORDERED: ACETAMINOPHEN 325 MG TABLET PO PRN (20:44)
[2024-03-09] MEDS ORDERED: cefTRIAXone 2 GM VIAL IV SCH (21:00)
--- NOTE | 2024-03-09 21:10 | HISTORY & PHYSICAL EXAMINATION ---
Chief Complaint - Chief Complaint Chief Complaint: Ground level fall with left hip pain History of Present Illness - Admitted From Admitted From:: Home - History Obtained From Records Reviewed: Yes History obtained from: Patient, er team and EMR Exam Limitations: none - History of Present Illness HPI Comment/Other: Patient is a 69-year-old female who presents to the emergency department after ground-level fall. She states she landed on the left hip causing left hip pain. She is currently undergoing IV antibiotics through her PICC line for an infection in her right humerus. She is followed at [facility] in [place] for this. Not on blood thinners. No head, neck, back pain. Patient was informed this is a telemedicine visit, we are both based in different location, consent obtained and patient agrees for the visit. 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 [employer], was helping with trash at local [employer] had a fall on Sep 14 fell on outstreched hand, had humeral fracture surgery x 2 had plate placed, infected has polymicrobial infection, currently on Rocephin, Vancomycin and doxycycline, also takes Lexapro, is independent with ADL's, today was taking trash down at her home, while going down 2 stairs missed a step and fell down could not stand up, severe pain, no dizziness palpitations or chest pain prior to event did not loose consiousness, found to have left hip femoral fracture, will be admitted for pain management and hip surgery ortho consulted by ER. 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 : reports: None HEENT: reports: None Psych: reports: None Musculoskeletal: reports: Osteoarthritis Derm: reports: None MRSA Hx?: No - POLST Patient has POLST: No Meds/Allgy - Home Medications Home Medications: Ambulatory Orders Medication Instructions Recorded Confirmed Doxycycline [Vibramycin] 100 mg PO BID 03/09/24 03/09/24 Escitalopram [Lexapro] 10 mg PO DAILY 03/09/24 03/09/24 Vancomycin/Water For Inj (Peg) 1,100 mg IV 03/09/24 [Vancomycin 1 Gram/200 ml Bag] cefTRIAXone [Rocephin 2 gram] 2 gm IV Q24H 03/09/24 03/09/24 - Allergies Allergies/Adverse Reactions: Allergies Allergy/AdvReac Type Severity Reaction Status Date / Time cephalexin [From Keflex] Allergy Hives Verified 03/09/24 17:57 erythromycin base Allergy Unknown Verified 03/09/24 17:57 sulfamethoxazole Allergy Unknown Verified 03/09/24 17:57 [From Septra] trimethoprim [From Septra] Allergy Unknown Verified 03/09/24 17:57 Review of Systems - Constitutional Constitutional: reports: Other (14 system review done and as per hPI) Prior Level of Functionality: Independent with ADL Exam - Vital Signs Vital Signs: Vital Signs x48h Temp Pulse Resp BP Pulse Ox O2 Flow Rate 03/09/24 19:26 36.7 C 79 17 142/77 H 94 2 03/09/24 18:11 68 22 139/69 H 91 L 1 03/09/24 18:05 92 1 03/09/24 17:50 88 L 03/09/24 17:49 70 18 139/71 H - Physical Exam General Appearance: positive: No acute distress Eyes Bilateral: positive: Normal inspection, PERRL, Other (wears glasses) ENT: positive: Pharynx nml, No signs of dehydration Neck: positive: Nml inspection, Thyroid nml, No JVD Respiratory: positive: Chest non-tender Cardiovascular: positive: Regular rate & rhythm Peripheral Pulses: positive: 2+ Abdomen: positive: Non-tender, No organomegaly, Nml bowel sounds, No distention Back: positive: Nml inspection Skin: positive: Color nml, No rash, Warm, Dry Extremities: positive: Other (Left leg externall rotated) Neurologic/Psychiatric: positive: Oriented x3, Mood/affect nml Sepsis Event Note (H) - Evaluation Current Stage of Sepsis: Ruled out Conclusion/Plan - Problem List (1) Hip fracture, left Conclusion/Plan: 69 yr elderly woman being admitted after a mechanical fall 1. Acute left femoral neck fracture 2. Mechanical fall 3. History of humeral plate with infection on iv abx 4. PICC line in place 5. Mood disorder 6. Active tobacco dependence Plan Admit to med surg ivf NPO except meds [place] consulted PICC line to be flushed Continue Vancomycin, Doxycycline and Rocephin Check labs blood cultures x 2 check labs in am Patient is medically optimized and moderate risk for moderate risk procedure Blood sugar control Tobacco cessation counseling done APC discussed and patient is full code All of the above discussed with patient and her son Total time spent 66 mins Qualifiers: Encounter type: initial encounter Fracture type: closed Qualified Code(s): S72.002A - Fracture of unspecified part of neck of left femur, initial encounter for closed fracture - Lab Results Fish Bones: 03/09/24 20:11 03/09/24 20:11 - Diagnostic Imaging Results Diagnostic Imaging Results: positive: Final report reviewed - EKG Results EKG Interpreted Independently: No
[2024-03-09] MEDS: DOXYCYCLINE 100 MG TABLET PO SCH (21:18)
[2024-03-09] MEDS ORDERED: oxyCODONE 5 MG TABLET PO PRN (21:19)
[2024-03-09] MEDS: SODIUM CHLORIDE 0.9% 1,000 ML IV SCH (21:54)
--- NOTE | 2024-03-09 21:55 | XRAY Report ---
PROCEDURE: Chest 1V INDICATIONS: hip fx TECHNIQUE: One view of the chest was acquired. COMPARISON: 08/05/2021 FINDINGS: Surgical changes and devices: Right humerus ORIF. Left upper extremity approach. Tip projects over t he low SVC. Lungs and pleura: No pleural effusions or pneumothorax. Lungs are clear. Mediastinum: Mediastinal contours appear normal. Heart size is normal. Bones and chest wall: No suspicious bony lesions. Overlying soft tissues appear unremarkable. IMPRESSION: No acute cardiopulmonary process. Reviewed by: Jack Gandhi MD on 03/09/2024 9:53 PM PDT Approved by: Jack Gandhi MD on 03/09/2024 9:53 PM PDT Station ID: [id number]
[2024-03-09] MEDS ORDERED: cefTRIAXone 2 GM in SODIUM CHLORIDE 0.9% MINIBAG 100 ML IV SCH (22:00)
[2024-03-09] MEDS: NICOTINE 14 MG PATCH TOP STA (22:14)
[2024-03-09] MEDS: SODIUM CHLORIDE FLUSH 0.9% 10 ML SYRINGE IVP PRN (22:15)
[2024-03-09] MEDS: HYDROmorphone 0.5 MG/0.5 ML SYRINGE IVP PRN (22:15)
[2024-03-10] MEDS: SODIUM CHLORIDE FLUSH 0.9% 10 ML SYRINGE IVP SCH ×2 (00:15→17:00)
[2024-03-10] MEDS: KETOROLAC 15 MG/ML VIAL IVP SCH (01:39)
[2024-03-10] MEDS: ACETAMINOPHEN 1,000 MG/100 ML 1,000 MG/100 ML BAG IV SCH (01:43)
[2024-03-10] MEDS: CYCLOBENZAPRINE 10 MG TABLET PO PRN (07:47)
--- NOTE | 2024-03-10 08:33 | CONSULTATION NOTE ---
Referring Provider Name of Referring Provider:: Juan Culver Consult Date: 03/10/24 History of Present Illness - History of Present Illness HPI Comment/Other: Sherice Dominique is a 69-year-old woman who had a ground-level fall on the day of her admission landing on her left side. Noted immediate pain in her left hip region. Was unable to stand or weight-bear. Was taken to the emergency room where x-rays showed a left intertrochanteric hip fracture. She was admitted for surgical stabilization and with probable surgical fixation for hip fracture. Her recent medical history is significant for an open duction internal fixation for complex left dominant proximal humerus fracture performed at [place] in late November 2023. Follow-up eventually led to the diagnosis of a postoperative osteomyelitis in the operative site. She had a surgical debridement and washout of her proximal humerus and was subsequently started on a 6-week course of IV vancomycin. The second procedure was done in early to mid January. Her orthopedic surgeon up in [place] was with Dr. Cruz. 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 : reports: None HEENT: reports: None Psych: reports: None Musculoskeletal: reports: Osteoarthritis Derm: reports: None MRSA Hx?: No - POLST Patient has POLST: No Meds/Allgy - Home Medications Home Medications: Ambulatory Orders Medication Instructions Recorded Confirmed Doxycycline [Vibramycin] 100 mg PO BID 03/09/24 03/09/24 Escitalopram [Lexapro] 10 mg PO DAILY 03/09/24 03/09/24 Vancomycin/Water For Inj (Peg) 1,100 mg IV 03/09/24 [Vancomycin 1 Gram/200 ml Bag] cefTRIAXone [Rocephin 2 gram] 2 gm IV Q24H 03/09/24 03/09/24 - Allergies Allergies/Adverse Reactions: Allergies Allergy/AdvReac Type Severity Reaction Status Date / Time cephalexin [From Keflex] Allergy Hives Verified 03/09/24 17:57 erythromycin base Allergy Unknown Verified 03/09/24 17:57 sulfamethoxazole Allergy Unknown Verified 03/09/24 17:57 [From Septra] trimethoprim [From Marra] Allergy Unknown Verified 03/09/24 17:57 Exam - Vital Signs Vital Signs: Vital Signs x48h Temp Pulse Resp BP Pulse Ox O2 Flow Rate 03/10/24 07:36 37.0 C 87 20 147/75 H 93 2 - Physical Exam Comments/Other: Examination: Patient's left hip was examined today. She has tenderness on palpation about the hip particular on the lateral aspect. She holds her left leg externally rotated and shortened. She is able to move her toes on command. Sensation. To be intact throughout. Good capillary filling noted of her digits. X-rays: Films were taken on admission shows evidence of a left intertrochanteric hip fracture Conclusion and Plan - Lab Results Laboratory Results 03/09/24 21:00: SARS-CoV-2 (PCR) NOT DETECTED 03/09/24 20:11: Sodium 136, Potassium 4.2, Chloride 106, Carbon Dioxide 22, Anion Gap 8.0, BUN 17, Creatinine 0.7, Estimated GFR (MDRD) 83 L, Glucose 141 H, Calcium 9.4, Total Bilirubin 0.4, AST 18, ALT 20, Alkaline Phosphatase 115, Total Protein 6.7, Albumin 4.1, Globulin 2.6, Albumin/Globulin Ratio 1.6, Lipase 16 03/09/24 20:11: WBC 13.6 H, RBC 4.48, Hgb 12.8, Hct 40.0, MCV 89.3, MCH 28.6, MCHC 32.0, RDW 13.8, Plt Count 297, MPV 9.3, Neut # (Auto) 10.9 H, Lymph # (Auto) 1.1 L, [place] # (Auto) 1.2 H, Eos # (Auto) 0.1, Baso # (Auto) 0.1, Absolute Nucleated RBC 0.00, Nucleated RBC % 0.0 - Diagnosis Diagnosis: left hip fracture - Plan Plan: Plan: Patient will be taken to the operating room this afternoon for surgical stabilization of her left hip fracture. Plan on doing a short InterTAN nailing of this fracture. Discussed treatment options with the patient. Also discussed risks and complications of surgery. These include the possibility of blood clot pulmonary embolus infection blood loss malunion nonunion hardware failure nerve damage etc. All her questions were answered today as well. She wishes us to proceed with surgery as planned. Leg was marked. Consent signed.
[2024-03-10] MEDS: ESCITALOPRAM 10 MG TABLET PO SCH (08:46)
[2024-03-10] MEDS: cefTRIAXone 2 GM in SODIUM CHLORIDE 0.9% MINIBAG 100 ML IV SCH (08:50)
--- NOTE | 2024-03-10 09:30 | PROVIDER PROGRESS NOTE ---
Assessment/Plan - Problem List (1) Hip fracture, left Qualifiers: Encounter type: initial encounter Fracture type: closed Qualified Code(s): S72.002A - Fracture of unspecified part of neck of left femur, initial encounter for closed fracture Assessment/Plan: Patient underwent closed reduction and short InterTAN nailing of left hip fracture today. Continue to monitor. Pain control with [place] every 4 hours as needed for pain PT/OT evaluation in the morning. (2) Osteomyelitis of right humerus Assessment/Plan: Continue treatment with Ceftriaxone 2 g daily vancomycin 1.1 g twice daily intravenously (3) Tobacco dependence Assessment/Plan: Stable continue to monitor - Current Meds Current Meds: Current Medications Generic Name Dose Route Start Last Admin Trade Name Freq PRN Reason Stop Dose Admin Cyclobenzaprine HCl 5 mg 03/10/24 01:24 03/10/24 07:47 Cyclobenzaprine 10 Mg Tablet PO 5 mg TID PRN Administration Spasms Doxycycline Hyclate 100 mg 03/09/24 21:00 03/10/24 08:46 Doxycycline 100 Mg Tablet PO 100 mg BID CHECO Administration Escitalopram Oxalate 10 mg 03/10/24 09:00 03/10/24 08:46 Escitalopram 10 Mg Tablet PO 10 mg DAILY CHECO Administration Hydromorphone HCl 0.5 mg 03/09/24 20:44 03/10/24 07:47 Hydromorphone 0.5 Mg/0.5 Ml Syringe IVP 0.5 mg Q2H PRN Administration Pain 8 to 10 Sodium Chloride 1,000 mls @ 100 mls/hr 03/09/24 21:00 03/10/24 05:27 Normal Saline 0.9% IV 100 mls/hr .Q10H CHECO Administration Ceftriaxone Sodium 2 gm/ 100 mls @ 200 mls/hr 03/10/24 09:00 03/10/24 08:50 Sodium Chloride IV 200 mls/hr Q24H CHECO Administration Acetaminophen 1,000 mg in 100 mls @ 400 mls/hr 03/10/24 02:00 03/10/24 03:29 Acetaminophen IV 03/10/24 20:00 Not Given Q6HR CHECO Ketorolac Tromethamine 15 mg 03/10/24 02:00 03/10/24 03:29 Ketorolac 15 Mg/Ml Vial IVP 03/10/24 22:00 Not Given Q8HR CHECO Sodium Chloride 10 ml 03/09/24 20:44 03/09/24 22:15 Sodium Chloride Flush 0.9% 10 Ml Syringe IVP 10 ml PRN PRN Administration NEEDED PER PROVIDER ORDERS Sodium Chloride 10 ml 03/10/24 01:00 03/10/24 00:15 Sodium Chloride Flush 0.9% 10 Ml Syringe IVP 10 ml 0100,0900,1700 CHECO Administration - Lab Result Fish Bone Diagrams: 03/09/24 20:11 03/09/24 20:11 - Additional Planning My Orders: My Active Orders 03/10/24 10:00 Vancomycin Inj [Vancomycin] 1 gm Sodium Chloride 0.9% [Normal Saline 0.9%] 500 ml IV Q12H Subjective - Subjective Patient Reports: Other (Alert. Following commands. Denies chest pain, shortness of breath and abdominal pain. Continues to complain of left hip pain secondary to acute fracture.) Objective Vital Signs: Vital Signs - 24 hr 03/09/24 03/09/24 03/09/24 17:49 17:50 18:05 Temperature Heart Rate 70 Heart Rate [ Radial] Respiratory 18 Rate Blood Pressure 139/71 H Blood Pressure [Right Radial artery] O2 Saturation 88 L 92 If not protocol 1 : Oxygen Flow, liters/minute 03/09/24 03/09/24 03/09/24 18:11 19:26 21:30 Temperature 36.7 C 36.5 C Heart Rate 68 79 Heart Rate [ 86 Radial] Respiratory 22 17 21 Rate Blood Pressure 139/69 H 142/77 H Blood Pressure 137/78 H [Right Radial artery] O2 Saturation 91 L 94 92 If not protocol 1 2 2 : Oxygen Flow, liters/minute 03/09/24 03/10/24 03/10/24 22:00 00:13 07:36 Temperature 36.6 C 37.0 C Heart Rate Heart Rate [ 98 87 Radial] Respiratory 18 20 Rate Blood Pressure Blood Pressure 166/93 H 147/75 H [Right Radial artery] O2 Saturation 92 93 If not protocol 2 2 2 : Oxygen Flow, liters/minute 03/10/24 07:40 Temperature Heart Rate Heart Rate [ Radial] Respiratory Rate Blood Pressure Blood Pressure [Right Radial artery] O2 Saturation If not protocol 2 : Oxygen Flow, liters/minute Oxygen O2 Source Nasal cannula I&O (Last 24 Hrs): Intake and Output Totals x24h 03/08/24 03/09/24 03/10/24 23:59 23:59 23:59 Intake Total 91.667 1760 Balance 91.667 1760 General: Alert, Oriented x3, No acute distress Neck: Supple, No JVD Neuro: Non Focal Cardiovascular: Other (Positive S1-S2 no extra heart sounds.) Respiratory: Other (Good air exchange in all lung clark no wheezing no crackles.) Abdomen: Other (Soft nontender nondistended positive bowel sounds.) Extremities: No cyanosis Skin: No rashes - Results Results: Laboratory Results WBC 13.6 x10^3/uL (4.8-10.8) H 03/09/24 20:11 RBC 4.48 10^6/uL (4.20-5.40) 03/09/24 20:11 Hgb 12.8 g/dL (12.0-16.0) 03/09/24 20:11 Hct 40.0 % (37.0-47.0) 03/09/24 20:11 MCV 89.3 fL (81.0-99.0) 03/09/24 20:11 MCH 28.6 pg (27.0-31.0) 03/09/24 20:11 MCHC 32.0 g/dL (32.0-36.0) 03/09/24 20:11 RDW 13.8 % (12.0-15.0) 03/09/24 20:11 Plt Count 297 10^3/uL (130-450) 03/09/24 20:11 MPV 9.3 fL (7.9-10.8) 03/09/24 20:11 Neut # (Auto) 10.9 10^3/uL (1.5-6.6) H 03/09/24 20:11 Lymph # (Auto) 1.1 10^3/uL (1.5-3.5) L 03/09/24 20:11 [place] # (Auto) 1.2 10^3/uL (0.0-1.0) H 03/09/24 20:11 Eos # (Auto) 0.1 10^3/uL (0.0-0.7) 03/09/24 20:11 Baso # (Auto) 0.1 10^3/uL (0.0-0.1) 03/09/24 20:11 Absolute Nucleated RBC 0.00 x10^3/uL 03/09/24 20:11 Nucleated RBC % 0.0 /100WBC 03/09/24 20:11 Sodium 136 mmol/L (135-145) 03/09/24 20:11 Potassium 4.2 mmol/L (3.5-4.5) 03/09/24 20:11 Chloride 106 mmol/L (101-111) 03/09/24 20:11 Carbon Dioxide 22 mmol/L (21-32) 03/09/24 20:11 Anion Gap 8.0 (6-13) 03/09/24 20:11 BUN 17 mg/dL (6-20) 03/09/24 20:11 Creatinine 0.7 mg/dL (0.6-1.3) 03/09/24 20:11 Estimated GFR (MDRD) 83 (>89) L 03/09/24 20:11 Glucose 141 mg/dL (74-104) H 03/09/24 20:11 Calcium 9.4 mg/dL (8.5-10.3) 03/09/24 20:11 Total Bilirubin 0.4 mg/dL (0.2-1.0) 03/09/24 20:11 AST 18 IU/L (10-42) 03/09/24 20:11 ALT 20 IU/L (10-60) 03/09/24 20:11 Alkaline Phosphatase 115 IU/L (42-121) 03/09/24 20:11 C-React Prot High Sens 25.48 mg/L 03/10/24 09:00 Total Protein 6.7 g/dL (6.4-8.9) 03/09/24 20:11 Albumin 4.1 g/dL (3.2-5.5) 03/09/24 20:11 Globulin 2.6 g/dL (2.1-4.2) 03/09/24 20:11 Albumin/Globulin Ratio 1.6 (1.0-2.2) 03/09/24 20:11 Lipase 16 U/L (11-82) 03/09/24 20:11 SARS-CoV-2 (PCR) NOT DETECTED 03/09/24 21:00 Sepsis Event Note (H) - Evaluation Current Stage of Sepsis: Ruled out
--- NOTE | 2024-03-10 10:50 | ANESTHESIA ---
Pre-Anesthesia VS, & Labs - Diagnosis Diagnosis left hip fracture - Procedure L hip nailing Vital Signs: Temp Pulse Resp BP Pulse Ox O2 Flow Rate 37.0 C 87 20 147/75 H 93 2 03/10/24 07:36 03/10/24 07:36 03/10/24 07:36 03/10/24 07:36 03/10/24 07:36 03/10/24 07:40 Height: 5 ft 5 in Weight (kg): 73 kg Body Mass Index: 26.7 BMI Classification: Overweight - NPO >8 hours - Is Patient ?: No - Lab Results Current Lab Results: Laboratory Tests 03/10/24 09:00: C-React Prot High Sens 25.48 03/09/24 20:11: Sodium 136, Potassium 4.2, Chloride 106, Carbon Dioxide 22, Anion Gap 8.0, BUN 17, Creatinine 0.7, Estimated GFR (MDRD) 83 L, Glucose 141 H, Calcium 9.4, Total Bilirubin 0.4, AST 18, ALT 20, Alkaline Phosphatase 115, Total Protein 6.7, Albumin 4.1, Globulin 2.6, Albumin/Globulin Ratio 1.6, Lipase 16 03/09/24 20:11: WBC 13.6 H, RBC 4.48, Hgb 12.8, Hct 40.0, MCV 89.3, MCH 28.6, MCHC 32.0, RDW 13.8, Plt Count 297, MPV 9.3, Neut # (Auto) 10.9 H, Lymph # (Auto) 1.1 L, [place] # (Auto) 1.2 H, Eos # (Auto) 0.1, Baso # (Auto) 0.1, Absolute Nucleated RBC 0.00, Nucleated RBC % 0.0 Fish Bones: 03/09/24 20:11 03/09/24 20:11 Home Medications and Allergies Home Medications: Ambulatory Orders Doxycycline [Vibramycin] 100 mg PO BID 03/09/24 Escitalopram [Lexapro] 10 mg PO DAILY 03/09/24 Vancomycin/Water For Inj (Peg) [Vancomycin 1 Gram/200 ml Bag] 1,100 mg IV 03/09/24 cefTRIAXone [Rocephin 2 gram] 2 gm IV Q24H 03/09/24 Active Medications Acetaminophen (Acetaminophen 325 Mg Tablet) 650 mg PO Q4HR PRN PRN Reason: Pain 1 to 4, or Fever Hydrocodone Bitart/Acetaminophen (Hydrocod/Acetam 5/325 Mg Tablet) 1 tab PO Q4HR PRN PRN Reason: Pain 5 to 7 Cyclobenzaprine HCl (Cyclobenzaprine 10 Mg Tablet) 5 mg PO TID PRN PRN Reason: Spasms Last Admin: 03/10/24 07:47 Dose: 5 mg Doxycycline Hyclate (Doxycycline 100 Mg Tablet) 100 mg PO BID ON LICENSE OF [facility] Last Admin: 03/10/24 08:46 Dose: 100 mg Escitalopram Oxalate (Escitalopram 10 Mg Tablet) 10 mg PO DAILY ON LICENSE OF [facility] Last Admin: 03/10/24 08:46 Dose: 10 mg Hydromorphone HCl (Hydromorphone 0.5 Mg/0.5 Ml Syringe) 0.5 mg IVP Q2H PRN PRN Reason: Pain 8 to 10 Last Admin: 03/10/24 07:47 Dose: 0.5 mg Sodium Chloride (Normal Saline 0.9%) 1,000 mls @ 100 mls/hr IV .Q10H ON LICENSE OF [facility] Last Admin: 03/10/24 05:27 Dose: 100 mls/hr Ceftriaxone Sodium 2 gm/ (Sodium Chloride) 100 mls @ 200 mls/hr IV Q24H ON LICENSE OF [facility] Last Admin: 03/10/24 08:50 Dose: 200 mls/hr Acetaminophen (Acetaminophen) 1,000 mg in 100 mls @ 400 mls/hr IV Q6HR ON LICENSE OF [facility] Stop: 03/10/24 20:00 Last Admin: 03/10/24 03:29 Dose: Not Given Vancomycin HCl 1 gm/ Sodium (Chloride) 500 mls @ 250 mls/hr IV Q12H ON LICENSE OF [facility] Ketorolac Tromethamine (Ketorolac 15 Mg/Ml Vial) 15 mg IVP Q8HR ON LICENSE OF [facility] Stop: 03/10/24 22:00 Last Admin: 03/10/24 03:29 Dose: Not Given Ondansetron HCl (Ondansetron 4 Mg/2 Ml Vial) 4 mg IVP Q6HR PRN PRN Reason: Nausea / Vomiting Oxycodone HCl (Oxycodone 5 Mg Tablet) 5 mg PO Q6HR PRN PRN Reason: PAIN 5-7 Sodium Chloride (Sodium Chloride Flush 0.9% 10 Ml Syringe) 10 ml IVP PRN PRN PRN Reason: NEEDED PER PROVIDER ORDERS Last Admin: 03/09/24 22:15 Dose: 10 ml Sodium Chloride (Sodium Chloride Flush 0.9% 10 Ml Syringe) 10 ml IVP 0100,0900,1700 [facility]CO Last Admin: 03/10/24 00:15 Dose: 10 ml Doxycycline [Vibramycin] 100 mg PO BID 03/09/24 Escitalopram [Lexapro] 10 mg PO DAILY 03/09/24 Vancomycin/Water For Inj (Peg) [Vancomycin 1 Gram/200 ml Bag] 1,100 mg IV 0 03/09/24 cefTRIAXone [Rocephin 2 gram] 2 gm IV Q24H 03/09/24 Allergies/Adverse Reactions: Allergies Allergy/AdvReac Type Severity Reaction Status Date / Time cephalexin [From Keflex] Allergy Hives Verified 03/09/24 17:57 erythromycin base Allergy Unknown Verified 03/09/24 17:57 sulfamethoxazole Allergy Unknown Verified 03/09/24 17:57 [From Septra] trimethoprim [From Marra] Allergy Unknown Verified 03/09/24 17:57 Anes History & Medical History - Anesthetic History Anesthesia Complications: reports: Post-Operative Nausea/Vomiting Family history of Anesthesia Complications: Denies Family history of Malignant Hyperthermia: Denies - Medical History Cardiovascular: reports: None Pulmonary: reports: Pneumonia Gastrointestinal: reports: None Urinary: reports: None Neuro: reports: None Musculoskeletal: reports: Osteoarthritis Endocrine/Autoimmune: reports: None Blood Disorders: reports: None Skin: reports: None Smoking Status: Current every day smoker Psychosocial: reports: No issues indicated History of Cancer?: No - Surgical History Orthopedic: reports: Other (ORIF R humerus, debridement and washout RUE) Exam General: Alert, Oriented x3, Cooperative Dental: WNL Mouth Openin Fingerbreadth Neck Mobility: Normal Mallampati classification: I Thyromental Distance: 4-6 cm Respiratory: Other (chronic cough, smoker >50yrs) Cardiovascular: Regular rate Plan Anesthesia Type: General (pt refuses SAB. pt also refuses PNB as she reports numbness at block site from previous interscalene block. Informed patient that if she changes her mind and consents we can perform FIB for post-op pain management) Consent for Procedure(s) Verified and Reviewed: Yes Code Status: Attempt Resuscitation ASA classification: 2-Mild systemic disease Is this case an emergency?: No
[2024-03-10] MEDS ORDERED: ePHEDrine 50 MG/ML VIAL IVP PRN (10:56)
[2024-03-10] MEDS ORDERED: MORPHINE 2 MG/ML CARPUJECT IVP PRN (10:56)
[2024-03-10] MEDS ORDERED: ONDANSETRON 4 MG/2 ML VIAL IVP PRN (10:56)
[2024-03-10] MEDS ORDERED: ATROPINE ABBOJECT 1 MG/10 ML SYRINGE IVP PRN (10:56)
[2024-03-10] MEDS ORDERED: HYDROmorphone 0.5 MG/0.5 ML SYRINGE IVP PRN (10:56)
[2024-03-10] MEDS ORDERED: NALOXONE 0.4 MG/ML VIAL IVP PRN (10:56)
[2024-03-10] MEDS: VANCOMYCIN INJ 1 GM in SODIUM CHLORIDE 0.9% 500 ML IV SCH (12:18)
[2024-03-10] MEDS: SCOPOLAMINE PATCH TOP SCH (12:24)
[2024-03-10] MEDS: LACTATED RINGERS 1,000 ML IV SCH (12:24)
[2024-03-10] MEDS ORDERED: BUPIVACAINE 0.5%-EPI 1:200000 PF 10 ML VIAL ONE (12:32)
[2024-03-10] MEDS ORDERED: PROPOFOL 200 MG/20 ML VIAL IVP ONE (13:46)
[2024-03-10] MEDS ORDERED: DEXAMETHASONE 4 MG/ML VIAL ONE (13:46)
[2024-03-10] MEDS ORDERED: MIDAZOLAM 2 MG/2 ML VIAL ONE (13:46)
[2024-03-10] MEDS ORDERED: ONDANSETRON 4 MG/2 ML VIAL ONE (13:46)
[2024-03-10] MEDS ORDERED: LIDOCAINE-PF 2% 10 ML AMP SUBQ ONE (13:46)
[2024-03-10] MEDS ORDERED: ROCURONIUM 50 MG/5 ML VIAL ONE (13:46)
[2024-03-10] MEDS ORDERED: fentaNYL 100 MCG/2 ML VIAL ONE ×3 (13:46→16:09)
[2024-03-10] MEDS ORDERED: ePHEDrine 50 MG/ML VIAL IVP ONE (14:06)
[2024-03-10] MEDS: BUPIVACAINE 0.5%-EPI 1:200000 PF 30 ML VIAL SUBQ ONE ×2 (14:13)
--- NOTE | 2024-03-10 14:43 | PHARMACY PROGRESS NOTE ---
- Best Possible Medication History Admit Date and Time: 03/09/242043 Processed by: Pharmacy Medications reviewed in ED?: Yes Medication History completed: Yes Patient Interview: Completed Secondary Source(s): Pharmacy records, Insurance records As the person ultimately responsible for medication therapy, providers are able to order a medication from an existing home medication list in [facility] via the "Reconcile Routine" prior to Confirmation of that medication by [employer] support. Such practice is discouraged except when the physician, in their clinical judgment, deems that a medical need exists for a medication without regard to previous use.
[2024-03-10] MEDS ORDERED: ALBUTEROL 6.7 GM INHALER INH ONE (14:50)
[2024-03-10] MEDS ORDERED: IPRATROPIUM/ALBUTEROL 3 ML NEB INH PRN (15:13)
[2024-03-10] MEDS ORDERED: SUGAMMADEX 200 MG/2 ML VIAL IVP ONE (15:18)
[2024-03-10] MEDS: LACTATED RINGERS 100 ML IV ONE ×2 (15:32→16:17)
[2024-03-10] MEDS ORDERED: oxyCODONE 5 MG TABLET PO PRN (15:33)
[2024-03-10] MEDS ORDERED: SODIUM CHLORIDE FLUSH 0.9% 10 ML SYRINGE IVP PRN (15:33)
--- NOTE | 2024-03-10 15:49 | OPERATIVE REPORT ---
Operative Report - General Admit Date: 03/09/24 Procedure Date: 03/10/24 Planned Procedure: Short InterTAN nailing of left hip fracture Pre-Op Diagnosis: Left intertrochanteric hip fracture Procedure Performed: Closed reduction and short InterTAN nailing of left hip fracture Post Op Diagnosis: Same - Procedure Note Primary Surgeon: Adria Daly MD Anesthesia Provider: Vilma Boyle CRNA Anesthesia Technique: General ET tube IV Fluids (mL): 1,000 Estimated Blood Loss (mL): 150 Complications: none - Other Other Information/Narrative: Description of procedure: Patient was taken to the operating room where she was placed under general anesthetic without any complications. She was then positioned supine on the [place] fracture table. Her right on fractured extremity was then flexed at the hip and widely abducted and held in the well-leg santiago. The fractured left extremity was then placed into axial traction. We internally rotated the leg approximately 40 degrees. Fluoroscopic views of her hip were then obtained showing a good reduction of her fracture in both AP and lateral projections. We then prepped and draped the lateral aspect of her proximal thigh in the usual fashion for our procedure. Through an oblique skin incision proximal to the tip of the greater trochanter we dissected down through the tensor fascia dick down to the tip of the greater trochanter. This is where we placed the threaded guidepin. C-arm fluoroscopy in AP projection confirmed the location of the tip of our guidepin. Under power we then advanced this pin down through the greater trochanter into the proximal femur down to the level of the lesser trochanter. Fluoroscopic view in AP and lateral projection showed proper depth and location of our guidepin and AP and lateral projections. Satisfied with this we then proceeded to insert a 16 mm channel reamer over our inserted guidepin and reamed the proximal femur. We then removed the guidepin and the reamer together. Next we placed the selected 125 degree angle x 11 then.5 mm diameter short InterTAN nail onto the insertion apparatus. We then inserted the herminia down the prepared proximal femur. Fluoroscopic views confirmed the IM nail was within the femoral canal and after several blows with a mallet we were able to advance the nail to the proper position. Satisfied that the axis of the proximal hole in the end of our nail was in line with the central axis of the femoral neck and femoral head, we then inserted our oval pin guide through outrigger through a small skin incision made in the proximal lateral thigh. This was advanced to the lateral femoral cortex. We then inserted the pin guide in place and with power advanced the threaded tip guidewire through the proximal femur through the femoral neck and into the femoral head. Fluoroscopic view showed that the guidepin was near the central axis of the femoral neck and head and was advanced to within 2 to 3 mm of the subchondral bone in both AP and lateral projections. Satisfied with the position of our guidepin the direct measuring guide was used and we determined 150 mm x 11 mm hip lag screw would be used. Removing the pin guide out of our oval sleeve we then proceeded to ream the proximal femur femoral neck and femoral head with our combined reamer up to the tip of our guidepin. Reaming was then removed and we followed with our guidepin with our selected hip lag screw. This was again advanced with the guidance of our pin to within 2 or 3 mm of the subchondral bone and AP and lateral projection. Satisfied with the position of the right hip leg screw we then used the hinge screwdriver to tighten the set screw in the proximal end of our InterTAN nail until it was snug. We then backed it off about a quarter of a turn. Removing our screwdrive r we also removed the insertion apparatus for our hip lag screw. Next we placed the distal locking screw and. Through the combined silver and gold sleeve in the static hole of our alignment guide we advanced through a skin incision the combined guides to with onto the lateral femoral cortex. We then used the drill to drill through the medial and lateral femoral shaft cortices. Fluoroscopic view showed that we was the proper depth with our drill. Measuring off the drill we decided 32.5 mm x 5 mm distal locking screw be utilized. Removing the drill and the silver sleeve we then advanced the selected screw through the gold sleeve and obtained good bicortical purchase. Fluoroscopic views and AP and lateral projection showed that this inserted locking screw was through the distal hole of our nail and was bicortical. We then proceeded to remove the gold screw sleeve in the and remove the insertion guide with the a ball tip screwdriver. Final x-rays were then obtained in AP and lateral projections of the entire nail and the reduced fracture. We then irrigated the wounds with sterile saline. We closed the fascia dick layers with 1 stitch of 2-0 Vicryl. Several 2-0 Vicryl subcuticular stitch just was then used to close the subcutaneous tissues. Finally skin curtis used approximate the wound edges. We did not dress the wound and transferred the patient off the [place] fracture table onto her bed and taken in to recovery room in satisfactory condition. Estimated blood loss: 150 mL Replacement: 1000 mL crystalloid Intraoperative complications: None Plan: Patient will be up weightbearing as tolerated on the extremity by postop day #1. She currently is on antibiotics for osteomyelitis.
[2024-03-10] MEDS: fentaNYL 100 MCG/2 ML VIAL IVP PRN (16:12)
[2024-03-10] MEDS: LACTATED RINGERS 1,000 ML IV ONE (16:18)
[2024-03-10] MEDS: ASPIRIN EC 81 MG TABLET PO SCH (20:37)
[2024-03-10] MEDS: ethyl alcohoL 62% SWAB AMPULE NAS SCH (20:37)
[2024-03-10] MEDS: CELECOXIB 100 MG CAPSULE PO SCH (20:37)
[2024-03-11] MEDS: ACETAMINOPHEN 500 MG TABLET PO SCH (01:30)
[2024-03-11 05:39] LABS: BASOPHILS % (AUTO) 0.4 %; EOSINOPHILS % (AUTO) 1.1 %; HCT - HEMATOCRIT 32.7 % (37.0-47.0); HGB - HEMOGLOBIN 10.2 g/dL (12.0-16.0); LYMPHOCYTES % (AUTO) 7.7 %; MEAN CORPUSCULAR HEMOGLOBIN 28.4 pg (27.0-31.0); MEAN CORPUSCULAR HGB CONC 31.2 g/dL (32.0-36.0); MEAN CORPUSCULAR VOLUME 91.1 fL (81.0-99.0); MEAN PLATELET VOLUME 9.6 fL (7.9-10.8); MONOCYTES % (AUTO) 15.9 %; NEUTROPHILS % (AUTO) 74.3 %; PLT - PLATELET COUNT 215 10^3/uL (130-450); RED BLOOD COUNT 3.59 10^6/uL (4.20-5.40); RED CELL DISTRIBUTION WIDTH 13.9 % (12.0-15.0); WHITE BLOOD COUNT 12.1 x10^3/uL (4.8-10.8)
[2024-03-11 05:43] LABS: ABNORMAL LYMPHS % (MANUAL) 0 %
[2024-03-11 05:59] LABS: ALBUMIN 3.2 g/dL (3.2-5.5); ALBUMIN/GLOBULIN RATIO 1.3 (1.0-2.2); BILIRUBIN,TOTAL 0.4 mg/dL (0.2-1.0); CALCIUM 8.3 mg/dL (8.5-10.3); CREATININE 0.6 mg/dL (0.6-1.3); POTASSIUM 4.1 mmol/L (3.5-4.5); TOTAL PROTEIN 5.6 g/dL (6.4-8.9)
[2024-03-11 06:16] LABS: BAND NEUTROPHILS % (MANUAL) 1 %; LYMPHOCYTES # (MANUAL) 1.3 10^3/uL (1.5-3.5); LYMPHOCYTES % (MANUAL) 11 %; MONOCYTES # (MANUAL) 1.3 10^3/uL (0.0-1.0); NEUTROPHILS # (MANUAL) 9.4 10^3/uL (1.5-6.6); RBC MORPHOLOGY (MULTIPLE) NORMAL APPEARANCE (NORMAL)
[2024-03-11 06:17] LABS: DIFFERENTIAL COMMENT MANUAL DIFFERENTIAL; PLATELET ESTIMATE, MANUAL NORMAL (130-450,000) (NORMAL)
[2024-03-11 09:02] LABS: HCT - HEMATOCRIT 33.9 % (37.0-47.0); HGB - HEMOGLOBIN 10.9 g/dL (12.0-16.0)
[2024-03-11] MEDS ORDERED: VANCOMYCIN INJ 1 GM in SODIUM CHLORIDE 0.9% 250 ML IV SCH (11:57)
[2024-03-11] MEDS: HYDROcod/ACETAM 5/325 MG TABLET PO PRN (13:54)
--- NOTE | 2024-03-11 14:03 | XRAY Report ---
PROCEDURE: OR C-Arm Procedure INDICATIONS: LEFT HIP NAILING FLUORO TIME: 000.6 TECHNIQUE: 4 intraoperative fluoroscopic images of left hip were obtained. COMPARISON: Left hip radiograph dated 03/09/2024. FINDINGS: Intraoperative fluoroscopic images shows internal fixation of left proximal femur with intramedullary herminia and surgical screws in place. Left hip alignment is anatomic. IMPRESSION: Fluoroscopy guidance was provided intraoperatively for left hip ORIF. Reviewed by: Javier Marrero MD on 03/11/2024 2:01 PM PDT Approved by: Javier Marrero MD on 03/11/2024 2:01 PM PDT Station ID: [id number]
--- NOTE | 2024-03-11 15:10 | PROVIDER PROGRESS NOTE ---
Subjective - Prog Note Date Prog Note Date: 03/11/24 Prog Note Time: 15:07 - Subjective Pt reports feeling: Improved (Usual postop pain) Objective - Vital Signs/Intake & Output Vital Signs: Vital Signs x48h Temp Pulse Pulse Pulse Pulse Resp BP 03/11/24 10:05 86 107 H 84 03/11/24 10:00 86 107 H 84 03/11/24 09:00 36.6 C 89 18 141/69 H 03/11/24 08:00 36.6 C 89 18 03/11/24 07:48 BP BP BP BP Pulse Ox Pulse Ox Pulse Ox 03/11/24 10:05 149/82 H 156/87 H 154/70 H 80 L 92 03/11/24 10:00 149/82 H 156/87 H 154/70 H 03/11/24 09:00 95 03/11/24 08:00 141/69 H 95 03/11/24 07:48 Pulse Ox Pulse Ox Pulse Ox Pulse Ox O2 Flow Rate 03/11/24 10:05 90 L 80 L 03/11/24 10:00 85 L 86 L 03/11/24 09:00 4 03/11/24 08:00 4 03/11/24 07:48 2 Intake & Output: Intake & Output 03/08/24 03/09/24 03/10/24 03/11/24 23:59 23:59 23:59 23:59 Intake Total 91.667 4213.333 3578.333 Output Total 1500 2000 Balance 91.667 2713.333 1578.333 - Lab Results Fish Bones: 03/11/24 08:49 03/11/24 05:26 Other Labs: Lab Results x24hrs 03/11/24 03/11/24 03/11/24 Range/Units 08:49 05:26 05:26 WBC 12.1 H (4.8-10.8) x10^3/uL RBC 3.59 L (4.20-5.40) 10^6/uL Hgb 10.9 L 10.2 L (12.0-16.0) g/dL Hct 33.9 L 32.7 L (37.0-47.0) % MCV 91.1 (81.0-99.0) fL MCH 28.4 (27.0-31.0) pg MCHC 31.2 L (32.0-36.0) g/dL RDW 13.9 (12.0-15.0) % Plt Count 215 (130-450) 10^3/uL MPV 9.6 (7.9-10.8) fL Neut # (Auto) Not Reportable Lymph # (Auto) Not Reportable Brewster # (Auto) Not Reportable Eos # (Auto) Not Reportable Baso # (Auto) Not Reportable Absolute Nucleated RBC Not Reportable Total Counted 100 Band Neuts % (Manual) 1 (0 - 10) % Abnorm Lymph % (Manual) 0 % Nucleated RBC % Not Reportable Neutrophils # (Manual) 9.4 H (1.5-6.6) 10^3/uL Lymphocytes # (Manual) 1.3 L (1.5-3.5) 10^3/uL Monocytes # (Manual) 1.3 H (0.0-1.0) 10^3/uL Eosinophils # (Manual) 0.0 (0-0.7) 10^3/uL Basophils # (Manual) 0.0 (0-0.1) 10^3/uL Differential Comment MANUAL DIFFERENTIAL Platelet Estimate NORMAL (130-450,000) (NORMAL) RBC Morph Micro Appear NORMAL APPEARANCE (NORMAL) Sodium 138 (135-145) mmol/L Potassium 4.1 (3.5-4.5) mmol/L Chloride 111 (101-111) mmol/L Carbon Dioxide 23 (21-32) mmol/L Anion Gap 4.0 L (6-13) BUN 13 (6-20) mg/dL Creatinine 0.6 (0.6-1.3) mg/dL Estimated GFR (MDRD) 99 (>89) Glucose 119 H (74-104) mg/dL Calcium 8.3 L (8.5-10.3) mg/dL Total Bilirubin 0.4 (0.2-1.0) mg/dL AST 12 (10-42) IU/L ALT 14 (10-60) IU/L Alkaline Phosphatase 75 (42-121) IU/L Total Protein 5.6 L (6.4-8.9) g/dL Albumin 3.2 (3.2-5.5) g/dL Globulin 2.4 (2.1-4.2) g/dL Albumin/Globulin Ratio 1.3 (1.0-2.2) Blood Type Blood Type Recheck Antibody Screen 03/11/24 03/09/24 Range/Units 05:26 22:30 WBC (4.8-10.8) x10^3/uL RBC (4.20-5.40) 10^6/uL Hgb (12.0-16.0) g/dL Hct (37.0-47.0) % MCV (81.0-99.0) fL MCH (27.0-31.0) pg MCHC (32.0-36.0) g/dL RDW (12.0-15.0) % Plt Count (130-450) 10^3/uL MPV (7.9-10.8) fL Neut # (Auto) Lymph # (Auto) Brewster # (Auto) Eos # (Auto) Baso # (Auto) Absolute Nucleated RBC Total Counted Band Neuts % (Manual) (0 - 10) % Abnorm Lymph % (Manual) % Nucleated RBC % Neutrophils # (Manual) (1.5-6.6) 10^3/uL Lymphocytes # (Manual) (1.5-3.5) 10^3/uL Monocytes # (Manual) (0.0-1.0) 10^3/uL Eosinophils # (Manual) (0-0.7) 10^3/uL Basophils # (Manual) (0-0.1) 10^3/uL Differential Comment Platelet Estimate (NORMAL) RBC Morph Micro Appear (NORMAL) Sodium (135-145) mmol/L Potassium (3.5-4.5) mmol/L Chloride (101-111) mmol/L Carbon Dioxide (21-32) mmol/L Anion Gap (6-13) BUN (6-20) mg/dL Creatinine (0.6-1.3) mg/dL Estimated GFR (MDRD) (>89) Glucose (74-104) mg/dL Calcium (8.5-10.3) mg/dL Total Bilirubin (0.2-1.0) mg/dL AST (10-42) IU/L ALT (10-60) IU/L Alkaline Phosphatase (42-121) IU/L Total Protein (6.4-8.9) g/dL Albumin (3.2-5.5) g/dL Globulin (2.1-4.2) g/dL Albumin/Globulin Ratio (1.0-2.2) Blood Type B POSITIVE Blood Type Recheck B POSITIVE Antibody Screen NEGATIVE - Other Results/Comments Other Results/Comments: Exam: Dressings changed Drainage - ok. Moves toes well. Sensation ok Up - WBAT on left with walker and standby assist. Sepsis Event Note (H) - Evaluation Current Stage of Sepsis: Ruled out Assessment/Plan - Problem List (1) Hip fracture, left Impression: Doing well postop PLAN: Continue PT - WBAT on left SNF placement Qualifiers: Encounter type: initial encounter Fracture type: closed Qualified Code(s): S72.002A - Fracture of unspecified part of neck of left femur, initial encounter for closed fracture
--- NOTE | 2024-03-11 17:40 | PROVIDER PROGRESS NOTE ---
Assessment/Plan - Problem List (1) Hip fracture, left Qualifiers: Encounter type: initial encounter Fracture type: closed Qualified Code(s): S72.002A - Fracture of unspecified part of neck of left femur, initial encounter for closed fracture Assessment/Plan: Assessment/Plan: Patient underwent closed reduction and short InterTAN nailing of left hip fracture on March 10, 2024. Continue to monitor. Pain control with Ripley every 4 hours as needed for pain. Ripley appears to be controlling pain well at this time. PT/OT has evaluated patient and recommendation is discharge to half-way facility to improve strenght, balance and conditioning. (2) Osteomyelitis of right humerus Assessment/Plan: Continue treatment with Ceftriaxone 2 g daily vancomycin 1.1 g twice daily intravenously (3) Tobacco dependence Assessment/Plan: Stable continue to monitor - Current Meds Current Meds: Current Medications Generic Name Dose Route Start Last Admin Trade Name Freq PRN Reason Stop Dose Admin Acetaminophen 1,000 mg 03/11/24 02:00 03/11/24 14:11 Acetaminophen 500 Mg Tablet PO Not Given Q6H CHECO Hydrocodone Bitart/Acetaminophen 1 tab 03/10/24 18:01 03/11/24 13:54 Hydrocod/Acetam 5/325 Mg Tablet PO 1 tab Q4HR PRN Administration Moderate Pain (Level 4-6) Alcohol 1 amp 03/10/24 21:00 03/11/24 08:17 Ethyl Alcohol 62% Swab Ampule AC 1 amp BID CHECO Administration Aspirin 81 mg 03/10/24 21:00 03/11/24 08:17 Aspirin Ec 81 Mg Tablet PO 81 mg BID CHECO Administration Celecoxib 200 mg 03/10/24 21:00 03/11/24 08:18 Celecoxib 100 Mg Capsule PO 200 mg BID CHECO Administration Cyclobenzaprine HCl 5 mg 03/10/24 01:24 03/10/24 17:13 Cyclobenzaprine 10 Mg Tablet PO 5 mg TID PRN Administration Spasms Escitalopram Oxalate 10 mg 03/10/24 09:00 03/11/24 08:17 Escitalopram 10 Mg Tablet PO 10 mg DAILY CHECO Administration Hydromorphone HCl 0.5 mg 03/09/24 20:44 03/11/24 08:18 Hydromorphone 0.5 Mg/0.5 Ml Syringe IVP 0.5 mg Q2H PRN Administration Pain 8 to 10 Sodium Chloride 1,000 mls @ 100 mls/hr 03/09/24 21:00 03/11/24 05:54 Normal Saline 0.9% IV 100 mls/hr .Q10H CHECO Administration Ceftriaxone Sodium 2 gm/ 100 mls @ 200 mls/hr 03/10/24 09:00 03/11/24 15:44 Sodium Chloride IV Infused Q24H CHECO Infusion Scopolamine HBr 1 patch 03/10/24 11:00 03/10/24 12:24 Scopolamine Patch TOP 1 patch Q3D CHECO Administration Sodium Chloride 10 ml 03/09/24 20:44 03/09/24 22:15 Sodium Chloride Flush 0.9% 10 Ml Syringe IVP 10 ml PRN PRN Administration NEEDED PER PROVIDER ORDERS Sodium Chloride 10 ml 03/10/24 01:00 03/11/24 08:21 Sodium Chloride Flush 0.9% 10 Ml Syringe IVP 10 ml 0100,0900,1700 CHECO Administration Sodium Chloride 10 ml 03/10/24 17:00 03/11/24 08:22 Sodium Chloride Flush 0.9% 10 Ml Syringe IVP Not Given 0100,0900,1700 CHECO - Lab Result Fish Bone Diagrams: 03/11/24 08:49 03/11/24 05:26 - Additional Planning My Orders: My Active Orders 03/10/24 18:01 HYDROcod/ACETAM 5/325 [Ripley 5/325] 1 tab PO Q4HR PRN 03/11/24 21:00 Vancomycin Inj [Vancomycin] 1 gm Sodium Chloride 0.9% [Normal Saline 0.9%] 250 ml IV Q12H Subjective - Subjective Patient Reports: Other (Alert. Denies chest pain shortness of breath and abdominal pain. Left hip pain markedly improved postop.) Objective Vital Signs: Vital Signs - 24 hr 03/10/24 03/10/24 03/10/24 17:40 18:40 19:40 Temperature 36.6 C 36.5 C 36.5 C Heart Rate [ 103 H 89 89 Radial] Heart Rate [ Sitting] Heart Rate [ Standing] Heart Rate [ Supine] Respiratory 24 24 24 Rate Blood Pressure [Left Radial artery] Blood Pressure 133/73 H 140/73 H 121/72 [Right Radial artery] Blood Pressure [Sitting] Blood Pressure [Standing] Blood Pressure [Supine] O2 Saturation 94 93 93 O2 Saturation [ Activity] O2 Saturation [ Sitting] O2 Saturation [ Standing] O2 Saturation [ Supine] O2 Saturation [ With Activity] O2 Saturation [ Without Activity] If not protocol 4 4 4 : Oxygen Flow, liters/minute 03/11/24 03/11/24 03/11/24 00:04 05:58 07:48 Temperature 36.4 C L 36.5 C Heart Rate [ 86 87 Radial] Heart Rate [ Sitting] Heart Rate [ Standing] Heart Rate [ Supine] Respiratory 24 23 Rate Blood Pressure [Left Radial artery] Blood Pressure 140/71 H 147/82 H [Right Radial artery] Blood Pressure [Sitting] Blood Pressure [Standing] Blood Pressure [Supine] O2 Saturation 92 96 O2 Saturation [ Activity] O2 Saturation [ Sitting] O2 Saturation [ Standing] O2 Saturation [ Supine] O2 Saturation [ With Activity] O2 Saturation [ Without Activity] If not protocol 3 4 2 : Oxygen Flow, liters/minute 03/11/24 03/11/24 03/11/24 08:00 09:00 10:00 Temperature 36.6 C 36.6 C Heart Rate [ 89 89 Radial] Heart Rate [ 86 Sitting] Heart Rate [ 107 H Standing] Heart Rate [ 84 Supine] Respiratory 18 18 Rate Blood Pressure 141/69 H [Left Radial artery] Blood Pressure 141/69 H [Right Radial artery] Blood Pressure 149/82 H [Sitting] Blood Pressure 156/87 H [Standing] Blood Pressure 154/70 H [Supine] O2 Saturation 95 95 O2 Saturation [ Activity] O2 Saturation [ Sitting] O2 Saturation [ Standing] O2 Saturation [ Supine] O2 Saturation [ 85 L With Activity] O2 Saturation [ 86 L Without Activity] If not protocol 4 4 : Oxygen Flow, liters/minute 03/11/24 03/11/24 10:05 15:49 Temperature 36.4 C L Heart Rate [ 82 Radial] Heart Rate [ 86 Sitting] Heart Rate [ 107 H Standing] Heart Rate [ 84 Supine] Respiratory 20 Rate Blood Pressure [Left Radial artery] Blood Pressure 122/68 [Right Radial artery] Blood Pressure 149/82 H [Sitting] Blood Pressure 156/87 H [Standing] Blood Pressure 154/70 H [Supine] O2 Saturation 100 O2 Saturation [ 80 L Activity] O2 Saturation [ 92 Sitting] O2 Saturation [ 90 L Standing] O2 Saturation [ 80 L Supine] O2 Saturation [ With Activity] O2 Saturation [ Without Activity] If not protocol 2 : Oxygen Flow, liters/minute Oxygen O2 Source [With Activity] Nasal cannula O2 Source [Without Activity] Nasal cannula O2 Source Nasal cannula I&O (Last 24 Hrs): Intake and Output Totals x24h 03/09/24 03/10/24 03/11/24 23:59 23:59 23:59 Intake Total 91.667 4213.333 3678.333 Output Total 1500 2000 Balance 91.667 2713.333 1678.333 General: Alert, No acute distress Neck: No JVD Neuro: Non Focal Cardiovascular: Other (Positive S1-S2 no extra heart sounds.) Respiratory: Other (Good air exchange in all lung clark no wheezing no crackles.) Abdomen: Other (Soft nontender nondistended positive bowel sounds) Extremities: No cyanosis Skin: No rashes - Results Results: Laboratory Results WBC 12.1 x10^3/uL (4.8-10.8) H 03/11/24 05:26 RBC 3.59 10^6/uL (4.20-5.40) L 03/11/24 05:26 Hgb 10.9 g/dL (12.0-16.0) L 03/11/24 08:49 Hct 33.9 % (37.0-47.0) L 03/11/24 08:49 MCV 91.1 fL (81.0-99.0) 03/11/24 05:26 MCH 28.4 pg (27.0-31.0) 03/11/24 05:26 MCHC 31.2 g/dL (32.0-36.0) L 03/11/24 05:26 RDW 13.9 % (12.0-15.0) 03/11/24 05:26 Plt Count 215 10^3/uL (130-450) 03/11/24 05:26 MPV 9.6 fL (7.9-10.8) 03/11/24 05:26 Neut # (Auto) Not Reportable 03/11/24 05:26 Lymph # (Auto) Not Reportable 03/11/24 05:26 [place] # (Auto) Not Reportable 03/11/24 05:26 Eos # (Auto) Not Reportable 03/11/24 05:26 Baso # (Auto) Not Reportable 03/11/24 05:26 Absolute Nucleated RBC Not Reportable 03/11/24 05:26 Total Counted 100 03/11/24 05:26 Band Neuts % (Manual) 1 % (0-10) 03/11/24 05:26 Abnorm Lymph % (Manual) 0 % 03/11/24 05:26 Nucleated RBC % Not Reportable 03/11/24 05:26 Neutrophils # (Manual) 9.4 10^3/uL (1.5-6.6) H 03/11/24 05:26 Lymphocytes # (Manual) 1.3 10^3/uL (1.5-3.5) L 03/11/24 05:26 Monocytes # (Manual) 1.3 10^3/uL (0.0-1.0) H 03/11/24 05:26 Eosinophils # (Manual) 0.0 10^3/uL (0-0.7) 03/11/24 05:26 Basophils # (Manual) 0.0 10^3/uL (0-0.1) 03/11/24 05:26 Differential Comment MANUAL DIFFERENTIAL 03/11/24 05:26 Platelet Estimate NORMAL (130-450,000) (NORMAL) 03/11/24 05:26 RBC Morph Micro Appear NORMAL APPEARANCE (NORMAL) 03/11/24 05:26 Sodium 138 mmol/L (135-145) 03/11/24 05:26 Potassium 4.1 mmol/L (3.5-4.5) 03/11/24 05:26 Chloride 111 mmol/L (101-111) 03/11/24 05:26 Carbon Dioxide 23 mmol/L (21-32) 03/11/24 05:26 Anion Gap 4.0 (6-13) L 03/11/24 05:26 BUN 13 mg/dL (6-20) 03/11/24 05:26 Creatinine 0.6 mg/dL (0.6-1.3) 03/11/24 05:26 Estimated GFR (MDRD) 99 (>89) 03/11/24 05:26 Glucose 119 mg/dL (74-104) H 03/11/24 05:26 Calcium 8.3 mg/dL (8.5-10.3) L 03/11/24 05:26 Total Bilirubin 0.4 mg/dL (0.2-1.0) 03/11/24 05:26 AST 12 IU/L (10-42) 03/11/24 05:26 ALT 14 IU/L (10-60) 03/11/24 05:26 Alkaline Phosphatase 75 IU/L (42-121) 03/11/24 05:26 C-React Prot High Sens 25.48 mg/L 03/10/24 09:00 Total Protein 5.6 g/dL (6.4-8.9) L 03/11/24 05:26 Albumin 3.2 g/dL (3.2-5.5) 03/11/24 05:26 Globulin 2.4 g/dL (2.1-4.2) 03/11/24 05:26 Albumin/Globulin Ratio 1.3 (1.0-2.2) 03/11/24 05:26 Lipase 16 U/L (11-82) 03/09/24 20:11 SARS-CoV-2 (PCR) NOT DETECTED 03/09/24 21:00 Blood Type B POSITIVE 03/11/24 05:26 Blood Type Recheck B POSITIVE 03/09/24 22:30 Antibody Screen NEGATIVE 03/11/24 05:26 Sepsis Event Note (H) - Evaluation Current Stage of Sepsis: Ruled out
[2024-03-11] MEDS: VANCOMYCIN INJ 1 GM in SODIUM CHLORIDE 0.9% 250 ML IV SCH (21:29)
[2024-03-11] MEDS: DOCUSATE SODIUM 100 MG CAPSULE PO PRN (21:32)
[2024-03-11] MEDS: CALCIUM CARBONATE CHEW 500 MG TABLET PO PRN (23:48)
[2024-03-12 05:37] LABS: HCT - HEMATOCRIT 29.2 % (37.0-47.0); HGB - HEMOGLOBIN 9.2 g/dL (12.0-16.0); MEAN CORPUSCULAR HEMOGLOBIN 28.8 pg (27.0-31.0); MEAN CORPUSCULAR HGB CONC 31.5 g/dL (32.0-36.0); MEAN CORPUSCULAR VOLUME 91.5 fL (81.0-99.0); MEAN PLATELET VOLUME 10.2 fL (7.9-10.8); RED BLOOD COUNT 3.19 10^6/uL (4.20-5.40); RED CELL DISTRIBUTION WIDTH 14.2 % (12.0-15.0); WHITE BLOOD COUNT 9.8 x10^3/uL (4.8-10.8)
[2024-03-12 05:50] LABS: CALCIUM 8.3 mg/dL (8.5-10.3); CREATININE 0.6 mg/dL (0.6-1.3); MAGNESIUM 1.5 mg/dL (1.7-2.3); PHOSPHORUS 1.9 mg/dL (2.5-5.0); POTASSIUM 3.6 mmol/L (3.5-4.5)
[2024-03-12] MEDS: SENNA 8.6 MG TABLET PO SCH (08:08)
[2024-03-12] MEDS: polyethylene glycoL 3350 17 GM PACKET PO SCH (08:09)
--- NOTE | 2024-03-12 11:12 | DISCHARGE SUMMARY ---
"Discharge Summary Admit Date: 03/09/24 Discharge Date: 03/13/24 Discharging Provider: Juan Almeida MD Primary Care Provider: Zamzam Aden Code Status: Attempt Resuscitation Condition at Discharge: Stable Discharge Disposition: 03 SNF DC/Xfer Discharge Facility Name: [facility] - DIAGNOSES Admission Diagnoses: (1) Hip fracture, left (2) Osteomyelitis of right humerus (3) Tobacco dependence Discharge Diagnoses with Status of Each Condition: (1) Hip fracture, left Qualifiers: Encounter type: initial encounter Fracture type: closed Qualified Code(s): S72.002A - Fracture of unspecified part of neck of left femur, initial encounter for closed fracture Assessment/Plan: Patient underwent closed reduction and short InterTAN nailing of left hip fra vasyl on March 10, 2024. Pain control with Odon every 4 hours as needed for pain. Odon appears to be controlling pain well at this time. Tums 500 mg twice daily initiated. PT/OT has evaluated patient and recommendation is discharge to correction facility to improve strenght, balance and conditioning. (2) Osteomyelitis of right humerus Assessment/Plan: Continue treatment with Ceftriaxone 2 g daily vancomycin 1.1 g twice daily intravenously. She should receive 8 more days of ceftriaxone and vancomycin and 24 more days of doxycycline. She is being treated for a osteomyelitis and is growing multiple organisms out of her cultures to include enterobacter cloacae and staphylococcus epidermis. (3) Tobacco dependence Assessment/Plan: Stable continue to monitor. Continue nicotine patch. (4) Hypomagnesmia Assessment/Plan: Replacement (5) Depression/Anxiety Assessment/Plan: Continue escitalopram 10 mg daily. (6) COPD Assessment/Plan: Patient most likely has a diagnosis of COPD. Continue outpatient albuterol and salmeterol/fluticasone. - HPI History of Present Illness: Per Dr. Adira Fan's history and physical: Patient is a 69-year-old female who presents to the emergency department after ground-level fall. She states she landed on the left hip causing left hip pain. She is currently undergoing IV antibiotics through her PICC line for an infection in her right humerus. She is followed at [facility] in [place] for this. Not on blood thinners. No head, neck, back pain. Patient was informed this is a telemedicine visit, we are both based in different location, consent obtained and patient agrees for the visit. 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 [employer], was helping wi [employer] at [employer] had a fall on Sep 14 fell on outstreched hand, had humeral fracture surgery x 2 had plate placed, infected has polymicrobial infection, currently on Rocephin, Vancomycin and doxycycline, also takes Lexapro, is independent with ADL's, today was taking trash down at her home, while going down 2 stairs missed a step and fell down could not stand up, severe pain, no dizziness palpitations or chest pain prior to event did not loose consiousness, found to have left hip femoral fracture, will be admitted for pain management and hip surgery ortho consulted by ER. Patient denies any other complaints, can easily achieve > 4 Mets of work activity and had no issues with 2 forearm surgeries, although states she is very sensitive to anesthesia and sometimes makes her sick no other complaints. - CONSULTS | PROCEDURES Consultations: 03/10/2024 Orthopedics (Dr. Trever Daly) Procedures: 03/10/2024 Closed reduction and short InterTAN nailing of left hip fracture - HOSPITAL COURSE Hospital Course: Sherice Dominique was admitted to the hospital on March 09, 2024. as an inpatient. X-ray of left hip performed in the emergency room revealed a left intertrochanteric hip fracture. Treatment continued with vancomycin, ceftriaxone and doxycycline per infectious disease (Dr. Adriano Neri) for an infection in her right humerus presumed to be osteomyelitis. Continue treatment with Ceftriaxone 2 g daily, vancomycin 1 g twice daily intravenously and doxycycline. She should receive 8 more days of ceftriaxone and vancomycin and 24 more days of doxycycline. She is being treated for a osteomyelitis and is growing multiple organisms out of her cultures to include enterobacter cloacae and staphylococcus epidermis. Dr. Perera of orthopedics was was consulted and on March 10, 2024 the patient underwent closed reduction and short InterTAN nailing of left hip fracture. Pain has been well-controlled with Odon 5 mg every 4 hours as needed for pain. On March 11, 2024 patient was evaluated by physical therapy and Occupational Therapy and the recommendation is patient be discharged to a correction facility for rehabilitation and improvement in her strength, balance and overall condition prior to returning home. She continues to require oxygen and she underwent a desaturations study prior to discharge on March 13, 2024. Patient at rest on room air with oxygen saturation of 97%. However, with exertion on room air her O2 saturations decreased to 85% with increased work of breathing and shortness of breath. Patient placed on 3 L/min by nasal cannula with exertion and her oxygen saturation improved to 95%. Home oxygen has been ordered at 3 L/min with exertion to treat her COPD and respiratory failure with hypoxia. A CT angiogram was performed on 03/13/2024 to evaluate for possible pulmonary embolism for symptoms of hypoxemia and shortness of breath. CT did not reveal a pulmonary embolism but did demonstrate an right middle lobe opacity that most likely is secondary to pneumonia. Patient is adequately covered with ceftriaxone and doxycycline. She is stable for discharge. - ALLERGIES Allergies/Adverse Reactions: Allergies Allergy/AdvReac Type Severity Reaction Status Date / Time cephalexin [From Keflex] Allergy Hives Verified 03/10/24 16:04 erythromycin base Allergy Unknown Verified 03/10/24 16:04 sulfamethoxazole Allergy Unknown Verified 03/10/24 16:04 [From Septra] trimethoprim [From Septra] Allergy Unknown Verified 03/10/24 16:04 - MEDICATIONS Home Medications: Ambulatory Orders Medication Instructions Recorded Confirmed Doxycycline [Vibramycin] 100 mg PO BID 03/09/24 03/10/24 Escitalopram [Lexapro] 10 mg PO DAILY 03/09/24 03/10/24 Aspirin EC [Ecotrin] 81 mg PO BID 33 Days #66 tab 03/13/24 Calcium Carbonate [Tums (Calcium 500 mg PO BID #60 tab 03/13/24 Carbonate 500mg)] Calcium Carbonate [Tums (Calcium 500 mg PO BID PRN #60 tab 03/13/24 Carbonate 500mg)] Celecoxib [CeleBREX] 200 mg PO BID PRN #60 cap 03/13/24 Cyclobenzaprine [Flexeril] 5 mg PO TID PRN #90 tab 03/13/24 Docusate Sodium 100Mg Capsule 100 mg PO BID PRN #60 cap 03/13/24 [Colace 100Mg Capsule] Doxycycline [Vibramycin] 100 mg PO BID 24 Days #48 tab 03/13/24 Fluticasone Propion/Salmeterol 1 each IH DAILY #1 each 03/13/24 [[place] 100-50 Inhub] HYDROcod/ACETAM 5/325 [Odon 5/325] 1 tab PO Q4HR PRN #28 tab 03/13/24 Magnesium Oxide [Mag Ox] 400 mg PO BID #14 tab 03/13/24 Nicotine 7 mg Patch [Nicoderm] 1 patch TOP DAILY #30 patch 03/13/24 Senna [Senokot] 8.6 - 17.2 mg PO DAILY #60 tab 03/13/24 Vancomycin/Water For Inj (Peg) 1 gm IV BID 8 Days #16 gm 03/13/24 03/11/24 [Vancomycin 1.25 gm/250 ml Bag] cefTRIAXone [Rocephin 2 gram] 2 gm IV DAILY 8 Days #16 03/13/24 03/11/24 polyethylene glycoL 3350 [Miralax] 17 gm PO PRN PRN #30 packet 03/13/24 - PHYSICAL EXAM AT DISCHARGE General Appearance: positive: No acute distress, Alert Eyes Bilateral: positive: Conjunctivae nml, No scleral icterus Neck: positive: No JVD, Trachea midline Respiratory: positive: Other Cardiovascular: positive: Other Abdomen: positive: Other (Soft nontender nondistended positive bowel sounds) Skin: positive: Other Extremities: positive: No pedal edema Neurologic/Psychiatric: positive: Oriented x3, Motor nml - LABS Result Diagrams: 03/13/24 05:15 03/13/24 05:15 - SEPSIS Current Stage of Sepsis: Ruled out - FOLLOW UP Follow Up: Follow-up with PCP upon discharge from correction facility. Follow-up with Dr. Andrade of infectious disease in [place] up discharge from correction facility. - TIME SPENT Time Spent in Discharge (Minutes): 40 (40 minutes spent coordinating discharge and counseling patient with regard to her problems prior to discharge. )"
--- NOTE | 2024-03-12 11:12 | Discharge Plan ---
Discharge Plan Problem Reviewed?: Yes Disposition: [facility] DC/Xfer Condition: Stable Prescriptions: HYDROcod/ACETAM 5/325 [[place] 5/325] 1 tab PO Q4HR PRN #28 tab PRN Reason: Moderate Pain (Level 4-6) Celecoxib [CeleBREX] 200 mg PO BID PRN #60 cap PRN Reason: Pain 1-4 Docusate Sodium 100Mg Capsule [Colace 100Mg Capsule] 100 mg PO BID PRN #60 cap PRN Reason: Constipation Aspirin EC [Ecotrin] 81 mg PO BID 33 Days #66 tab Cyclobenzaprine [Flexeril] 5 mg PO TID PRN #90 tab PRN Reason: Spasms Magnesium Oxide [Mag Ox] 400 mg PO BID #14 tab polyethylene glycoL 3350 [Miralax] 17 gm PO PRN PRN #30 packet PRN Reason: Constipation Nicotine 7 mg Patch [Nicoderm] 1 patch TOP DAILY #30 patch Senna [Senokot] 8.6 - 17.2 mg PO DAILY #60 tab Calcium Carbonate [Tums (Calcium Carbonate 500mg)] 500 mg PO BID PRN #60 tab PRN Reason: Heartburn Calcium Carbonate [Tums (Calcium Carbonate 500mg)] 500 mg PO BID #60 tab Fluticasone Propion/Salmeterol [[place] 100-50 Inhub] 1 each IH DAILY #1 each Diet: Regular Activity Restrictions: Wt Bearing as Tolerated Shower Restrictions: Yes (Recommed using shower bench or chair) Driving Restrictions: Yes (Recommend no driving until hip pain significantly improved. ) Assistance Devices: Walker Weight Bearing: Full Weight Instruction Topics: Fx Hip, Fx Hip Common Questions, Fx Hip Surg Home Recovery Health Concerns: Per Dr. Adria Fan's history and physical: Patient is a 69-year-old female who presents to the emergency department after ground-level fall. She states she landed on the left hip causing left hip pain. She is currently undergoing IV antibiotics through her PICC line for an infection in her right humerus. She is followed at [facility] in [place] for this. Not on blood thinners. No head, neck, back pain. Patient was informed this is a telemedicine visit, we are both based in different location, consent obtained and patient agrees for the visit. 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 [employer], was helping with trash at local [employer] had a fall on Sep 14 fell on outstreched hand, had humeral fracture surgery x 2 had plate placed, infected has polymicrobial infection, currently on Rocephin, Vancomycin and doxycycline, also takes Lexapro, is independent with ADL's, today was taking trash down at her home, while going down 2 stairs missed a step and fell down could not stand up, severe pain, no dizziness palpitations or chest pain prior to event did not loose consiousness, found to have left hip femoral fracture, will be admitted for pain management and hip surgery ortho consulted by ER. Patient denies any other complaints, can easily achieve > 4 Mets of work activity and had no issues with 2 forearm surgeries, although states she is very sensitive to anesthesia and sometimes makes her sick no other complaints. Hospital Course: Sherice Dominique was admitted to the hospital on March 09, 2024. as an inpatient. X-ray of left hip performed in the emergency room revealed a left intertrochanteric hip fracture. Treatment continued with vancomycin, ceftriaxone and doxycycline per infectious disease (Dr. Adriano Neri) for an infection in her right humerus presumed to be osteomyelitis. Continue treatment with Ceftriaxone 2 g daily, vancomycin 1 g twice daily intravenously and doxycycline. She should receive 8 more days of ceftriaxone and vancomycin and 24 more days of doxycycline. She is being treated for a osteomyelitis and is growing multiple organisms out of her cultures to include enterobacter cloacae and staphylococcus epidermis. Dr. Perera of orthopedics was was consulted and on March 10, 2024 the patient underwent closed reduction and short InterTAN nailing of left hip fracture. Pain has been well-controlled with [place] 5 mg every 4 hours as needed for pain. On March 11, 2024 patient was evaluated by physical therapy and Occupational Therapy and the recommendation is patient be discharged to a half-way facility for rehabilitation and improvement in her strength, balance and overall condition prior to returning home. She continues to require oxygen and she underwent a desaturations study prior to discharge on March 13, 2024. Patient at rest on room air with oxygen saturation of 97%. However, with exertion on room air her O2 saturations decreased to 85% with increased work of breathing and shortness of breath. P atient placed on 3 L/min by nasal cannula with exertion and her oxygen saturation improved to 95%. Home oxygen has been ordered at 3 L/min with exertion to treat her COPD and respiratory failure with hypoxia. Plan of Treatment: 1. Take all medications as prescribed. 2. Follow-up with primary care provider 2 to 4 weeks after discharge. 3. Follow-up with [facility] 2 weeks for follow-up and staple removal. ([phone]) 4. Follow-up with Dr. Andrade in the [facility] infectious disease clinic in [place] the next 2-4 weeks. Care Goals: Goal of care is to return to baseline function. Assessment: (1) Hip fracture, left Qualifiers: Encounter type: initial encounter Fracture type: closed Qualified Code(s): S72.002A - Fracture of unspecified part of neck of left femur, initial encounter for closed fracture Assessment/Plan: Patient underwent closed reduction and short InterTAN nailing of left hip f racture on March 10, 2024. Pain control with [place] every 4 hours as needed for pain. [place] appears to be controlling pain well at this time. Tums 500 mg twice daily initiated. PT/OT has evaluated patient and recommendation is discharge to half-way facility to improve strenght, balance and conditioning. (2) Osteomyelitis of right humerus Assessment/Plan: Continue treatment with Ceftriaxone 2 g daily vancomycin 1.1 g twice daily intravenously. She should receive 8 more days of ceftriaxone and vancomycin and 24 more days of doxycycline. She is being treated for a osteomyelitis and is growing multiple organisms out of her cultures to include enterobacter cloacae and staphylococcus epidermis. (3) Tobacco dependence Assessment/Plan: Stable continue to monitor. Continue nicotine patch. (4) Hypomagnesmia Assessment/Plan: Replacement (5) Depression/Anxiety Assessment/Plan: Continue escitalopram 10 mg daily. (6) COPD Assessment/Plan: Patient most likely has a diagnosis of COPD. Continue outpatient albuterol and salmeterol/fluticasone. She continues to require oxygen and she underwent a desaturations study prior to discharge on March 13, 2024. Patient at rest on room air with oxygen saturation of 97%. However, with exertion on room air her O2 saturations decreased to 85% with increased work of breathing and shortness of breath. Patient placed on 3 L/min by nasal cannula with exertion and her oxygen saturation improved to 95%. Home oxygen has been ordered at 3 L/min with exertion to treat her COPD and respiratory failure with hypoxia. No Smoking: If you smoke, Please STOP! Call for help. Follow-up with: Zamzam Aden ARNP [Provider Admit Priv/Credential] -
--- NOTE | 2024-03-12 12:04 | PROVIDER PROGRESS NOTE ---
Assessment/Plan - Problem List (1) Hip fracture, left Qualifiers: Encounter type: initial encounter Fracture type: closed Qualified Code(s): S72.002A - Fracture of unspecified part of neck of left femur, initial encounter for closed fracture Assessment/Plan: Patient underwent closed reduction and short InterTAN nailing of left hip fracture on March 10, 2024. Continue to monitor. Pain control with [place] every 4 hours as needed for pain. [place] appears to be controlling pain well at this time. Tums 500 mg twice daily initiated. PT/OT has evaluated patient and recommendation is discharge to jail facility to improve strenght, balance and conditioning. Patient is medically cleared for discharge to a jail facility. (2) Osteomyelitis of right humerus Assessment/Plan: Continue treatment with Ceftriaxone 2 g daily vancomycin 1.1 g twice daily intravenously. I have requested records from infectious disease from [facility] with regard to her right humerus infection. I attempted to contract Dr. Neri but he is on vacation. (3) Tobacco dependence Assessment/Plan: Stable continue to monitor (4) Hypomagnesmia Assessment/Plan: Replacement - Current Meds Current Meds: Current Medications Generic Name Dose Route Start Last Admin Trade Name Freq PRN Reason Stop Dose Admin Acetaminophen 1,000 mg 03/11/24 02:00 03/12/24 08:07 Acetaminophen 500 Mg Tablet PO 1,000 mg Q6H CHECO Administration Hydrocodone Bitart/Acetaminophen 1 tab 03/10/24 18:01 03/11/24 19:16 Hydrocod/Acetam 5/325 Mg Tablet PO 1 tab Q4HR PRN Administration Moderate Pain (Level 4-6) Alcohol 1 amp 03/10/24 21:00 03/12/24 08:09 Ethyl Alcohol 62% Swab Ampule AC 1 amp BID CHECO Administration Aspirin 81 mg 03/10/24 21:00 03/12/24 08:07 Aspirin Ec 81 Mg Tablet PO 81 mg BID CHECO Administration Celecoxib 200 mg 03/10/24 21:00 03/12/24 08:08 Celecoxib 100 Mg Capsule PO 200 mg BID CHECO Administration Cyclobenzaprine HCl 5 mg 03/10/24 01:24 03/11/24 21:28 Cyclobenzaprine 10 Mg Tablet PO 5 mg TID PRN Administration Spasms Docusate Sodium 100 mg 03/10/24 15:33 03/11/24 21:32 Docusate Sodium 100 Mg Capsule PO 100 mg BID PRN Administration Constipation Escitalopram Oxalate 10 mg 03/10/24 09:00 03/12/24 08:54 Escitalopram 10 Mg Tablet PO 10 mg DAILY CHECO Administration Hydromorphone HCl 0.5 mg 03/09/24 20:44 03/12/24 10:41 Hydromorphone 0.5 Mg/0.5 Ml Syringe IVP 0.5 mg Q2H PRN Administration Pain 8 to 10 Ceftriaxone Sodium 2 gm/ 100 mls @ 200 mls/hr 03/10/24 09:00 03/12/24 08:45 Sodium Chloride IV Infused Q24H CHECO Infusion Vancomycin HCl 1 gm/ Sodium 250 mls @ 166.667 mls/hr 03/11/24 21:00 03/12/24 10:35 Chloride IV Infused Q12H CHECO Infusion Polyethylene Glycol 17 gm 03/12/24 09:00 03/12/24 08:09 Polyethylene Glycol 3350 17 Gm Packet PO 17 gm DAILY CHECO Administration Scopolamine HBr 1 patch 03/10/24 11:00 03/10/24 12:24 Scopolamine Patch TOP 1 patch Q3D CHECO Administration Senna 8.6 - 17.2 mg 03/12/24 09:00 03/12/24 08:08 Senna 8.6 Mg Tablet PO 8.6 mg DAILY CHECO Administration Sodium Chloride 10 ml 03/09/24 20:44 03/09/24 22:15 Sodium Chloride Flush 0.9% 10 Ml Syringe IVP 10 ml PRN PRN Administration NEEDED PER PROVIDER ORDERS Sodium Chloride 10 ml 03/10/24 01:00 03/12/24 08:09 Sodium Chloride Flush 0.9% 10 Ml Syringe IVP 10 ml 0100,0900,1700 CHECO Administration Sodium Chloride 10 ml 03/10/24 17:00 03/12/24 09:35 Sodium Chloride Flush 0.9% 10 Ml Syringe IVP 10 ml 0100,0900,1700 CHECO Administration - Lab Result Fish Bone Diagrams: 03/12/24 05:09 03/12/24 05:09 - Additional Planning My Orders: My Active Orders 03/11/24 21:00 Vancomycin Inj [Vancomycin] 1 gm Sodium Chloride 0.9% [Normal Saline 0.9%] 250 ml IV Q12H 03/12/24 VITAMIN D 25-HYDROXY [REFLAB] Routine 03/12/24 21:00 Calcium Carbonate [Tums] 500 mg PO BID Subjective - Subjective Patient Reports: Other (Alert. She denies shortness of breath, chest pain and abdominal pain. Hip pain is well-controlled with [place]. No other complaints at this time) Objective Vital Signs: Vital Signs - 24 hr 03/11/24 03/11/24 03/11/24 15:49 19:15 23:40 Temperature 36.4 C L 36.7 C Heart Rate [ 82 92 Radial] Respiratory 20 18 Rate Blood Pressure 122/68 120/66 [Right Radial artery] O2 Saturation 100 92 If not protocol 2 2 2 : Oxygen Flow, liters/minute 03/12/24 03/12/24 08:33 11:38 Temperature 36.9 C Heart Rate [ 103 H Radial] Respiratory 20 Rate Blood Pressure 153/87 H [Right Radial artery] O2 Saturation 94 If not protocol 2 2 : Oxygen Flow, liters/minute Oxygen O2 Source [With Activity] Nasal cannula O2 Source [Without Activity] Nasal cannula O2 Source Nasal cannula I&O (Last 24 Hrs): Intake and Output Totals x24h 03/10/24 03/11/24 03/12/24 23:59 23:59 23:59 Intake Total 4213.333 6070.000 1361.667 Output Total 1500 3025 1575 Balance 2713.333 3045.000 -213.333 General: Alert, Oriented x3, No acute distress Neck: Supple, No JVD Neuro: Alert, Non Focal Cardiovascular: Other (Positive S1-S2 no extra heart sounds.) Respiratory: Other (Good air exchange in all lung clark no wheezing no crackles.) Abdomen: Other (Soft nontender nondistended positive bowel sounds) Extremities: No cyanosis, No edema Skin: No rashes - Results Results: Laboratory Results WBC 9.8 x10^3/uL (4.8-10.8) 03/12/24 05:09 RBC 3.19 10^6/uL (4.20-5.40) L 03/12/24 05:09 Hgb 9.2 g/dL (12.0-16.0) L 03/12/24 05:09 Hct 29.2 % (37.0-47.0) L 03/12/24 05:09 MCV 91.5 fL (81.0-99.0) 03/12/24 05:09 MCH 28.8 pg (27.0-31.0) 03/12/24 05:09 MCHC 31.5 g/dL (32.0-36.0) L 03/12/24 05:09 RDW 14.2 % (12.0-15.0) 03/12/24 05:09 Plt Count 200 10^3/uL (130-450) 03/12/24 05:09 MPV 10.2 fL (7.9-10.8) 03/12/24 05:09 Neut # (Auto) Not Reportable 03/11/24 05:26 Lymph # (Auto) Not Reportable 03/11/24 05:26 Ponce # (Auto) Not Reportable 03/11/24 05:26 Eos # (Auto) Not Reportable 03/11/24 05:26 Baso # (Auto) Not Reportable 03/11/24 05:26 Absolute Nucleated RBC Not Reportable 03/11/24 05:26 Total Counted 100 03/11/24 05:26 Band Neuts % (Manual) 1 % (0-10) 03/11/24 05:26 Abnorm Lymph % (Manual) 0 % 03/11/24 05:26 Nucleated RBC % Not Reportable 03/11/24 05:26 Neutrophils # (Manual) 9.4 10^3/uL (1.5-6.6) H 03/11/24 05:26 Lymphocytes # (Manual) 1.3 10^3/uL (1.5-3.5) L 03/11/24 05:26 Monocytes # (Manual) 1.3 10^3/uL (0.0-1.0) H 03/11/24 05:26 Eosinophils # (Manual) 0.0 10^3/uL (0-0.7) 03/11/24 05:26 Basophils # (Manual) 0.0 10^3/uL (0-0.1) 03/11/24 05:26 Differential Comment MANUAL DIFFERENTIAL 03/11/24 05:26 Platelet Estimate NORMAL (130-450,000) (NORMAL) 03/11/24 05:26 RBC Morph Micro Appear NORMAL APPEARANCE (NORMAL) 03/11/24 05:26 Sodium 137 mmol/L (135-145) 03/12/24 05:09 Potassium 3.6 mmol/L (3.5-4.5) 03/12/24 05:09 Chloride 110 mmol/L (101-111) 03/12/24 05:09 Carbon Dioxide 24 mmol/L (21-32) 03/12/24 05:09 Anion Gap 3.0 (6-13) L 03/12/24 05:09 BUN 17 mg/dL (6-20) 03/12/24 05:09 Creatinine 0.6 mg/dL (0.6-1.3) 03/12/24 05:09 Estimated GFR (MDRD) 99 (>89) 03/12/24 05:09 Glucose 98 mg/dL (74-104) 03/12/24 05:09 Calcium 8.3 mg/dL (8.5-10.3) L 03/12/24 05:09 Phosphorus 1.9 mg/dL (2.5-5.0) L 03/12/24 05:09 Magnesium 1.5 mg/dL (1.7-2.3) L 03/12/24 05:09 Total Bilirubin 0.4 mg/dL (0.2-1.0) 03/11/24 05:26 AST 12 IU/L (10-42) 03/11/24 05:26 ALT 14 IU/L (10-60) 03/11/24 05:26 Alkaline Phosphatase 75 IU/L (42-121) 03/11/24 05:26 C-React Prot High Sens 25.48 mg/L 03/10/24 09:00 Total Protein 5.6 g/dL (6.4-8.9) L 03/11/24 05:26 Albumin 3.2 g/dL (3.2-5.5) 03/11/24 05:26 Globulin 2.4 g/dL (2.1-4.2) 03/11/24 05:26 Albumin/Globulin Ratio 1.3 (1.0-2.2) 03/11/24 05:26 Lipase 16 U/L (11-82) 03/09/24 20:11 SARS-CoV-2 (PCR) NOT DETECTED 03/09/24 21:00 Blood Type B POSITIVE 03/11/24 05:26 Blood Type Recheck B POSITIVE 03/09/24 22:30 Antibody Screen NEGATIVE 03/11/24 05:26 Sepsis Event Note (H) - Evaluation Current Stage of Sepsis: Ruled out
[2024-03-12] MEDS: MAGNESIUM OXIDE 400 MG TABLET PO SCH (12:54)
[2024-03-12] MEDS: POTASSIUM CHLORIDE 20 MEQ/15 ML UDC PO SCH (12:54)
--- NOTE | 2024-03-12 14:10 | PROVIDER PROGRESS NOTE ---
Subjective - Prog Note Date Prog Note Date: 03/12/24 Prog Note Time: 07:30 - Subjective Pt reports feeling: Improved Objective - Vital Signs/Intake & Output Vital Signs: Vital Signs x48h Temp Pulse Resp BP Pulse Ox O2 Flow Rate 03/12/24 11:38 2 03/12/24 08:33 36.9 C 103 H 20 153/87 H 94 2 Intake & Output: Intake & Output 03/09/24 03/10/24 03/11/24 03/12/24 23:59 23:59 23:59 23:59 Intake Total 91.667 4213.333 6070.000 1541.667 Output Total 1500 3025 1575 Balance 91.667 2713.333 3045.000 -33.333 - Lab Results Fish Bones: 03/12/24 05:09 03/12/24 05:09 Other Labs: Lab Results x24hrs 03/12/24 03/12/24 Range/Units 05:09 05:09 WBC 9.8 (4.8-10.8) x10^3/uL RBC 3.19 L (4.20-5.40) 10^6/uL Hgb 9.2 L (12.0-16.0) g/dL Hct 29.2 L (37.0-47.0) % MCV 91.5 (81.0-99.0) fL MCH 28.8 (27.0-31.0) pg MCHC 31.5 L (32.0-36.0) g/dL RDW 14.2 (12.0-15.0) % Plt Count 200 (130-450) 10^3/uL MPV 10.2 (7.9-10.8) fL Sodium 137 (135-145) mmol/L Potassium 3.6 (3.5-4.5) mmol/L Chloride 110 (101-111) mmol/L Carbon Dioxide 24 (21-32) mmol/L Anion Gap 3.0 L (6-13) BUN 17 (6-20) mg/dL Creatinine 0.6 (0.6-1.3) mg/dL Estimated GFR (MDRD) 99 (>89) Glucose 98 (74-104) mg/dL Calcium 8.3 L (8.5-10.3) mg/dL Phosphorus 1.9 L (2.5-5.0) mg/dL Magnesium 1.5 L (1.7-2.3) mg/dL - Other Results/Comments Other Results/Comments: Examination: Patient's hip dressing was intact. Minimal pain with hip rotation. Patient moves her toes on command. Sensation intact throughout. Patient apparently has been up weightbearing as tolerated on her extremity with standby assist on the floor. Sepsis Event Note (H) - Evaluation Current Stage of Sepsis: Ruled out Assessment/Plan - Problem List (1) Hip fracture, left Impression: Doing well postoperatively Plan: Mobilize as tolerated. Qualifiers: Encounter type: initial encounter Fracture type: closed Qualified Code(s): S72.002A - Fracture of unspecified part of neck of left femur, initial encounter for closed fracture
[2024-03-12] MEDS: CALCIUM CARBONATE CHEW 500 MG TABLET PO PRN (16:55)
[2024-03-12] MEDS: CALCIUM CARBONATE CHEW 500 MG TABLET PO SCH (21:05)
[2024-03-12] MEDS: NEUTRA-PHOS 250 MG TABLET PO SCH (23:40)
[2024-03-13 05:35] LABS: HCT - HEMATOCRIT 27.7 % (37.0-47.0); HGB - HEMOGLOBIN 8.7 g/dL (12.0-16.0); MEAN CORPUSCULAR HEMOGLOBIN 28.6 pg (27.0-31.0); MEAN CORPUSCULAR HGB CONC 31.4 g/dL (32.0-36.0); MEAN CORPUSCULAR VOLUME 91.1 fL (81.0-99.0); MEAN PLATELET VOLUME 10.1 fL (7.9-10.8); RED BLOOD COUNT 3.04 10^6/uL (4.20-5.40); RED CELL DISTRIBUTION WIDTH 14.3 % (12.0-15.0); WHITE BLOOD COUNT 8.2 x10^3/uL (4.8-10.8)
[2024-03-13 05:39] LABS: CALCIUM 8.2 mg/dL (8.5-10.3); CREATININE 0.8 mg/dL (0.6-1.3); MAGNESIUM 1.6 mg/dL (1.7-2.3); PHOSPHORUS 2.9 mg/dL (2.5-5.0); POTASSIUM 3.8 mmol/L (3.5-4.5)
[2024-03-13 07:47] VITALS: BP 165/81; O2SAT 97
[2024-03-13] MEDS ORDERED: iohexoL-300 100 ML VIAL ONE (08:16)
[2024-03-13] MEDS: DOXYCYCLINE 100 MG TABLET PO SCH (08:54)
[2024-03-13] MEDS: NICOTINE 7 MG PATCH TOP SCH (08:58)
[2024-03-13] MEDS ORDERED: ALBUTEROL 1 PUFF INH PRN (09:17)
--- NOTE | 2024-03-13 10:45 | CT Report ---
PROCEDURE: Angio Chest INDICATIONS: New onset dyspnea and hypoxemia postop for hip fx CONTRAST: 80ml omni 300 TECHNIQUE: After the administration of intravenous contrast, 2 mm axial images were acquired from the pulmonary apices to the posterior costophrenic angles during the arterial phase. In addition, 1 mm lung kernel and 5 mm soft tissue kernel reconstructions were performed. 3-dimensional coronal oblique maximum int ensity projection (MIP) reformats, 8 mm axial MIP, and 5 mm coronal and sagittal MPR reformats were t hen performed through the thorax. For radiation dose reduction, the following was used: automated exp osure control, adjustment of mA and/or kV according to patient size. COMPARISON: None. FINDINGS: Image quality: Excellent. Pulmonary arteries: No pulmonary emboli. Normal caliber vessels. Thoracic aorta: Normal caliber without dissection. Lungs and pleura: Moderate emphysematous change. Focal pneumonia, posterior segment right upper lobe, potentially representing aspiration pneumonia. Small bilateral pleural effusions, right greater than left, with compressive subjacent atelectasis. No suspicious pulmonary nodules which require follow u p. Mediastinum: Heart size is normal. No pericardial effusion. No large vessel abnormality. No mediastin al adenopathy by size criteria. Chest wall and lower neck: Thyroid is unremarkable. No axillary or supraclavicular adenopathy by size . Bones: No aggressive osseous abnormality. Diffuse osteopenia. Multiple old compressions with increase d thoracic kyphosis.. Upper Abdomen: Unremarkable. IMPRESSION: 1. No acute pulmonary blood. 2. Pneumonia, posterior right upper lobe, possibly aspiration. 3. Moderate emphysematous change. 4. Small bilateral pleural effusions and compressive bibasilar atelectasis. 5. Multiple chronic osteoporotic compressions. Reviewed by: Troy Del Cid MD on 03/13/2024 10:44 AM PDT Approved by: Troy Del Cid MD on 03/13/2024 10:44 AM PDT Station ID: [id number]
--- NOTE | 2024-03-13 10:56 | PROVIDER PROGRESS NOTE ---
Subjective - Prog Note Date Prog Note Date: 03/13/24 Prog Note Time: 10:47 - Subjective Pt reports feeling: No change Objective - Vital Signs/Intake & Output Vital Signs: Vital Signs x48h Temp Pulse Resp BP Pulse Ox O2 Flow Rate 03/13/24 08:32 3 03/13/24 07:42 36.5 C 79 20 165/81 H 97 3 Intake & Output: Intake & Output 03/10/24 03/11/24 03/12/24 03/13/24 23:59 23:59 23:59 23:59 Intake Total 4213.333 6070.000 3371.667 840 Output Total 1500 3025 2725 1250 Balance 2713.333 3045.000 646.667 -410 - Lab Results Fish Bones: 03/13/24 05:15 03/13/24 05:15 Other Labs: Lab Results x24hrs 03/13/24 03/13/24 Range/Units 05:15 05:15 WBC 8.2 (4.8-10.8) x10^3/uL RBC 3.04 L (4.20-5.40) 10^6/uL Hgb 8.7 L (12.0-16.0) g/dL Hct 27.7 L (37.0-47.0) % MCV 91.1 (81.0-99.0) fL MCH 28.6 (27.0-31.0) pg MCHC 31.4 L (32.0-36.0) g/dL RDW 14.3 (12.0-15.0) % Plt Count 193 (130-450) 10^3/uL MPV 10.1 (7.9-10.8) fL Sodium 138 (135-145) mmol/L Potassium 3.8 (3.5-4.5) mmol/L Chloride 109 (101-111) mmol/L Carbon Dioxide 23 (21-32) mmol/L Anion Gap 6.0 (6-13) BUN 21 H (6-20) mg/dL Creatinine 0.8 (0.6-1.3) mg/dL Estimated GFR (MDRD) 71 L (>89) Glucose 178 H (74-104) mg/dL Calcium 8.2 L (8.5-10.3) mg/dL Phosphorus 2.9 (2.5-5.0) mg/dL Magnesium 1.6 L (1.7-2.3) mg/dL - Other Results/Comments Other Results/Comments: EXAM: Splint - ok Moves toes on command Sitting up in chair - ok. Transfers to chair with standby assistance on floor Sepsis Event Note (H) - Evaluation Current Stage of Sepsis: Ruled out Assessment/Plan - Problem List (1) Hip fracture, left Impression: Doing well PLAN: Mobilize as tolerated. Walker ambulate -WBAT on left SNP pending RTC at orthopedic clinic in 2 weeks for curtis out and new XR. Qualifiers: Encounter type: initial encounter Fracture type: closed Qualified Code(s): S72.002A - Fracture of unspecified part of neck of left femur, initial encounter for closed fracture
[2024-03-13] MEDS: CALCIUM CARBONATE CHEW 500 MG TABLET PO SCH (12:01)
[2024-03-13] MEDS: MAGNESIUM OXIDE 400 MG TABLET PO SCH (12:01)
== END 2024-03-13 15:27 | DRG 480 ==
LOC: EDUNIT# → ED 17:43 → MS2 20:44
PROVIDERS: ADMIT Internal Medicine; ATTEND Internal Medicine
PROC: 0QS734Z Reposition Left Upper Femur with Internal Fixation Device, Percutaneous Approach (ICD-10-PCS; principal; 2024-03-10 13:00)
DX: S72.002A Fracture of unspecified part of neck of left femur, initial encounter for closed fracture (principal); W19.XXXA Unspecified fall, initial encounter; S72.142A Displaced intertrochanteric fracture of left femur, initial encounter for closed fracture; J18.9 Pneumonia, unspecified organism; J96.91 Respiratory failure, unspecified with hypoxia; M86.8X2 Other osteomyelitis, upper arm; F17.200 Nicotine dependence, unspecified, uncomplicated; E83.42 Hypomagnesemia; F32.A Depression, unspecified; F41.9 Anxiety disorder, unspecified; J44.9 Chronic obstructive pulmonary disease, unspecified; B95.7 Other staphylococcus as the cause of diseases classified elsewhere; B95.2 Enterococcus as the cause of diseases classified elsewhere; W10.9XXA Fall (on) (from) unspecified stairs and steps, initial encounter; F39 Unspecified mood [affective] disorder; Z11.52 Encounter for screening for COVID-19; Z79.82 Long term (current) use of aspirin; Z79.899 Other long term (current) drug therapy
CPT/HCPCS: 36415; 71045; 71275; 73502; 80048; 80053; 83690; 83735; 84100; 85014; 85018; 85025; 85027; 86141; 86850; 86900; 86901; 87040; 87635; 93005; 94761; 96374; 96376; 97162; 97166; 97530; 99285; A9270; J0131; J1170; J3370; J3490; J7120; J7613; Q9967; 82306

== ENCOUNTER 2024-03-13 18:07 | Outpatient (CLI) | payer MEDICARE, MEDICAID ==
[2024-03-13] MEDS: iohexoL-300 100 ML VIAL IVP ONE (18:07)
== END 2024-03-13 23:59 | disposition home or self-care (01) ==
LOC: DI 18:07
PROVIDERS: ATTEND Nurse Practitioner
DX: Z53.9 Procedure and treatment not carried out, unspecified reason (principal)

== ENCOUNTER 2024-03-26 13:42 | Outpatient (CLI) | payer MEDICARE, MEDICAID ==
--- NOTE | 2024-03-26 15:00 | XRAY Report ---
PROCEDURE: Hip w/Pelvis 2-3V LT INDICATIONS: POST OP CARE TECHNIQUE: 3 views of the hip were acquired. COMPARISON: 03/09/2024 FINDINGS: Bones: Status post intramedullary herminia and dynamic screw fixation of left femoral neck fracture. Alig nment is improved compared to prior. No evidence of hardware complication. No suspicious bony lesions . Soft tissues: No suspicious soft tissue calcifications or masses. IMPRESSION: Improved alignment status post ORIF of left femoral neck fracture without evidence of hardware compli cation. Reviewed by: Byron Ojeda MD on 03/26/2024 2:59 PM PDT Approved by: Byron Ojeda MD on 03/26/2024 2:59 PM PDT Station ID: [id number]
== END 2024-03-26 13:43 | disposition home or self-care (01) ==
LOC: DI 13:42
PROVIDERS: ATTEND Orthopaedic Surgery
DX: S72.002D Fracture of unspecified part of neck of left femur, subsequent encounter for closed fracture with routine healing (principal)